=== PATIENT | male | born 1975 | race Caucasian/White ===

== ENCOUNTER 2016-11-06 17:57 | Emergency (ER) | payer SELFPAY ==
[2016-11-06 18:09] VITALS: BP 141/87
--- NOTE | 2016-11-06 19:05 | ER Document Report ---
ED Extremity Problem, Lower - General Chief Complaint: Leg Pain Stated Complaint: LEG PAIN Time Seen by Provider: 11/06/16 18:35 Mode of Arrival: Ambulatory Information source: Patient Notes: 41-year-old male presents to ED for complaint of left leg pain for the last 3-4 weeks that is gradually gotten worse. He states it lockhart all the time now. Denies any injuries. 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 He had diabetes and high blood pressure TRAVEL OUTSIDE OF THE [place] IN LAST 30 DAYS: No - HPI Patient complains to provider of: Pain Location: Thigh - Left Occurred: Other - 3-4 weeks Onset/Duration: Gradual Quality of pain: Burning Severity: Severe Pain Level: 5 Recent injury: No Associated symptoms: Painful ambulation Exacerbated by: Movement, Walking Relieved by: Nothing - Related Data Allergies/Adverse Reactions: Penicillins Allergy (Verified 11/06/16 18:06) Past Medical History - General Information source: Patient - Social History Smoking Status: Never Smoker Cigarette use (# per day): No Chew tobacco use (# tins/day): No Smoking Education Provided: No Frequency of alcohol use: None Drug Abuse: None Occupation: [employer] find[employer] Lives with: Family Family History: DM, Malignancy, Other - Gallbladder disease Patient has suicidal ideation: No Patient has homicidal ideation: No - Past Medical History Cardiac Medical History: Reports: Hx Hypertension Pulmonary Medical History: Reports: None EENT Medical History: Reports: None Neurological Medical History: Reports: None Endocrine Medical History: Reports: Hx Diabetes Mellitus Type 2 Renal/ Medical History: Reports: None Malignancy Medical History: Reports None GI Medical History: Reports: None Musculoskeltal Medical History: Reports Hx Musculoskeletal Deformity, Reports Hx Musculoskeletal Trauma Skin Medical History: Reports None Psychiatric Medical History: Reports: None Traumatic Medical History: Reports: None Infectious Medical History: Reports: None Past Surgical History: Reports: Hx Appendectomy, Hx Orthopedic Surgery - bilateral knee replacement 2012, shoulder bilaterally - Immunizations Immunizations up to date: Yes Hx Diphtheria, Pertussis, Tetanus Vaccination: Yes Review of Systems - Review of Systems Constitutional: No symptoms reported EENT: No symptoms reported Cardiovascular: No symptoms reported Respiratory: No symptoms reported Gastrointestinal: No symptoms reported Genitourinary: No symptoms reported Male Genitourinary: No symptoms reported Musculoskeletal: Muscle stiffness - left leg pain Skin: No symptoms reported Hematologic/Lymphatic: No symptoms reported Neurological/Psychological: No symptoms reported -: Yes All other systems reviewed and negative Physical Exam - Vital signs Vitals: Temp Pulse Resp BP Pulse Ox 98.2 F 99 22 H 141/87 H 95 11/06/16 18:07 11/06/16 18:07 11/06/16 18:07 11/06/16 18:07 11/06/16 18:07 Interpretation: Normal - General General appearance: Appears well, Alert - HEENT Head: Normocephalic, Atraumatic Eyes: Normal Pupils: PERRL - Respiratory Respiratory status: No respiratory distress Chest status: Nontender Breath sounds: Normal Chest palpation: Normal - Cardiovascular Rhythm: Regular Heart sounds: Normal auscultation Murmur: No - Abdominal Inspection: Normal Distension: No distension Bowel sounds: Normal Tenderness: Nontender Organomegaly: No organomegaly - Back Back: Normal, Nontender - Extremities General upper extremity: Normal inspection, Nontender, Normal color, Normal ROM , Normal temperature General lower extremity: Normal inspection, Tender, Normal color, Normal ROM, Normal temperature, Normal weight bearing. No: Jamila's sign Thigh: Tender. No: Abrasion, Deformity, Dislocation, Ecchymosis, Instability, Laceration, Unable to bear weight Knee: Normal, Nontender Calf: Normal, Nontender Ankle: Normal, Nontender - Neurological Neuro grossly intact: Yes Cognition: Normal Orientation: AAOx4 [place] Coma Scale Eye Opening: Spontaneous Nieves Coma Scale Verbal: Oriented Nieves Coma Scale Motor: Obeys Commands [place] Coma Scale Total: 15 Speech: Normal Motor strength normal: LUE, RUE, LLE, RLE Sensory: Normal - Psychological Associated symptoms: Normal affect, Normal mood - Skin Skin Temperature: Warm Skin Moisture: Dry Skin Color: Normal Course - Re-evaluation Re-evalutation: 11/06/16 19:13 Discussed assessment with patient and the fact that the patient has sciatic pain which is from his lower back nerve inflammation. Instructed patient to follow-up with her primary doctor to get further evaluated. Patient instructed to try to lose some weight and to stop eating the candy that he is eaten as he also has diabetes. Patient also instructed on back exercises and ibuprofen for his pain. - Vital Signs Vital signs: Temp Pulse Resp BP Pulse Ox 98.2 F 99 22 H 141/87 H 95 11/06/16 18:07 11/06/16 18:07 11/06/16 18:07 11/06/16 18:07 11/06/16 18:07 Discharge - Discharge Clinical Impression: Sciatic leg pain Condition: Stable Disposition: HOME, SELF-CARE Instructions: Family Physicians / Practices, Stretching Exercises for the Back (OM) Additional Instructions: Sciatica Your symptoms suggest "sciatica." The pain of sciatica typically radiates down the leg. Numbness in the foot or calf may also occur. Sciatica is caused by irritation of the sciatic nerve or its branches. The irritation can be due to a herniated disk in the spine, swelling and inflammation in the muscles surrounding the sciatic nerve, or direct injury of the nerve itself. Most cases of sciatica will resolve with medical treatment. Bed rest is usually recommended initially. Surgery is only necessary when the condition will not improve with rest and antiinflammatory medication. Muscle relaxers are often given if muscle soreness is present. A CAT scan of the back may be performed if a herniated disk is suspected. Re-examination is necessary if you develop increasing numbness, localized weakness in the foot or ankle, or if the pain does not respond to rest. Anti-Inflammatory Medication You have received a prescription for an antiinflammatory agent. This is an excellent, safe drug for pain control. In addition, it has potent antiinflammatory effects which are beneficial, especially in the treatment of injuries, arthritis, or tendonitis. It's best to take this medicine with food. Persons with ulcer disease or allergy to aspirin should notify their physician of this before taking this drug. Take the medication exactly as prescribed. Don't take additional doses unless instructed to do so by your doctor. If you develop wheezing, shortness of breath, hives, faintness, stomach pain, vomiting, or dark black stools, return for re-evaluation at once. USE OF TYLENOL (ACETAMINOPHEN): Acetaminophen may be taken for pain relief or fever control. It's much safer than aspirin, offering a wider range of "safe" dosages. It is safe during . Some brand names are Tylenol, Panadol, Datril, Anacin 3, Tempra, and Liquiprin. Acetaminophen can be repeated every four hours. The following are maximum recommended dosages: WEIGHT Dose Drops Elixir Chewable( 80mg) (LBS.) drprs=droppers tsp=teaspoon 6 40 mg 0.4 ml (1/2) 6-11 80 mg 0.8 ml (full) tsp 1 tab 12-16 120 mg 1 1/2 drprs 3/4 tsp 1 1/2 tabs 17-23 160 mg 2 drprs 1 tsp 2 tabs 24-30 240 mg 3 drprs 1 1/2 tsp 3 tabs 30-35 320 mg 2 tsp 4 tabs 36-41 360 mg 2 1/4 tsp 4 1/2 tabs 42-47 400 mg 2 1/2 tsp 5 tabs 48-53 480 mg 3 tsp 6 tabs 54-59 520 mg 3 1/4 tsp 6 1/2 tabs 60-64 560 mg 3 1/2 tsp 7 tabs 65-70 600 mg 3 3/4 tsp 7 1/2 tabs 71-76 640 mg 4 tsp 8 tabs 77-82 720 mg 4 1/2 tsp 9 tabs 83-88 800 mg 5 tsp 10 tabs >89 pounds or adults 650 mg to 900 mg Acetaminophen can be repeated every four hours. Maximum dose not to exceed 4000 mg a day. These maximum recommended dosages are slightly higher than the dosages written on the product container, but these dosages are very safe and below the toxic dosage for acetaminophen. ICE PACKS: Apply ice packs frequently against the painful area. Many different schedules are recommended, such as "20 minutes on, 20 minutes off" or "one hour ice, two hours rest." If you need to work, you may need to go longer between ice treatments. You should plan to have the area ice packed AT LEAST one fourth of the time. The ice should be applied over the wrap, tape, or splint, or over a layer of cloth -- not directly against the skin. Some ice bags have a built-in cloth and can be put directly on the skin. WARM PACKS: After approximately two days, apply gentle heat (such as a heating pad or hot water bottle) for about 20 to 30 minutes about every two hours -- at least four times daily. Warmth and elevation will help you make a more rapid recovery , and will ease the pain considerably. Do not use HOT heat, and never apply heat for longer than 30 minutes. The continuous heat can invisibly damage skin and muscles -- even when no burn is seen on the surface. Damaged muscles can make you MORE sore. FOLLOW-UP CARE: If you have been referred to a physician for follow-up care, call the physician s office for an appointment as you were instructed or within the next two days. If you experience worsening or a significant change in your symptoms, notify the physician immediately or return to the Emergency Department at any time for re-evaluation. Forms: Elevated Blood Pressure, Return to Work
== END 2016-11-06 19:05 | disposition home or self-care (01) ==
LOC: ER 17:57
DX: M54.32 Sciatica, left side (principal); M79.605 Pain in left leg; E11.9 Type 2 diabetes mellitus without complications; I10 Essential (primary) hypertension
CPT/HCPCS: 99283

== ENCOUNTER 2017-09-22 19:12 | Emergency (ER) | payer SELFPAY ==
--- NOTE | 2017-09-22 19:44 | ER Document Report ---
ED GI/ - General Chief Complaint: Flank Pain Stated Complaint: FLANK PAIN Time Seen by Provider: 09/22/17 19:32 Notes: Patient is a 42-year-old male presents emergency department the chief complaint of right lower back pain. Patient states that this been going on for the past 3 days. She also admits to intermittent right upper quadrant pain. He denies any nausea, vomiting, loss of appetite, diarrhea, constipation. He admits to polyuria and polydipsia. Patient does have known insulin-dependent diabetes but is been noncompliant with care in community follow-up and has not been taking any medications for the past 7 months. Otherwise he denies any fevers or chills recently. Admits to previous appendectomy. TRAVEL OUTSIDE OF THE [place] IN LAST 30 DAYS: No - Related Data Allergies/Adverse Reactions: Penicillins Allergy (Verified 09/22/17 19:14) Past Medical History - Social History Smoking Status: Never Smoker Chew tobacco use (# tins/day): No Frequency of alcohol use: None Drug Abuse: None Family History: DM, Malignancy, Other - Gallbladder disease Patient has suicidal ideation: No Patient has homicidal ideation: No - Past Medical History Cardiac Medical History: Reports: Hx Hypertension Endocrine Medical History: Reports: Hx Diabetes Mellitus Type 2 Renal/ Medical History: Denies: Hx Peritoneal Dialysis Musculoskeltal Medical History: Reports Hx Musculoskeletal Deformity, Reports Hx Musculoskeletal Trauma Past Surgical History: Reports: Hx Appendectomy, Hx Orthopedic Surgery - bilateral knee replacement 2012, shoulder bilaterally - Immunizations Immunizations up to date: Yes Hx Diphtheria, Pertussis, Tetanus Vaccination: Yes Review of Systems - Review of Systems Constitutional: See HPI EENT: No symptoms reported Cardiovascular: No symptoms reported Respiratory: No symptoms reported Gastrointestinal: See HPI Genitourinary: See HPI Musculoskeletal: See HPI -: Yes All other systems reviewed and negative Physical Exam - Vital signs Vitals: Temp Pulse Resp BP Pulse Ox 98.3 F 94 20 133/86 H 96 09/22/17 19:17 09/22/17 19:17 09/22/17 19:17 09/22/17 19:17 09/22/17 19:17 - Notes Notes: PHYSICAL EXAM GENERAL: Alert, interacts well. HEAD: Normocephalic, atraumatic. EYES: Pupils equal, round, and reactive to light. Extraocular movements intact. ENT: Oral mucosa moist, tongue midline. NECK: Full range of motion. Supple. Trachea midline. LUNGS: Clear to auscultation bilaterally, no wheezes, rales, or rhonchi. No respiratory distress. HEART: Regular rate and rhythm. No murmurs, gallops, or rubs. ABDOMEN: Soft, nondistended, nontender. No guarding, rebound, or rigidity.. Bowel sounds present in all 4 quadrants. EXTREMITIES: Moves all 4 extremities spontaneously. No edema, radial and dorsalis pedis pulses 2/4 bilaterally. No cyanosis. Back: Pain reproducible the right lumbar para musculature without any spinous process deformities, step-offs or tenderness. Negative for CVA tenderness bilaterally 5 out of 5 strength both distally and proximally bilateral lower extremities. 2+ patellar reflexes bilaterally. Sensation grossly intact in the bilateral lower extremities. Patient is able to ambulate without difficulty. NEUROLOGICAL: Alert and oriented x4. Normal speech. PSYCH: Normal affect, normal mood. SKIN: Warm, dry, normal turgor. No rashes or lesions noted. Course - Re-evaluation Re-evalutation: 09/22/17 21:41 Patient is a 42-year-old male who presents with complaints of polyuria, polydipsia, right upper quadrant pain and lower back pain. Patient has previously presented with polyuria, polydipsia and epigastric abdominal pain in the past which led him to be diagnosed with diabetes at that time. Presentation of asymptomatic hyperglycemia. There is no evidence of HHS or diabetic ketoacidosis on laboratories or based on clinical history. Patient's vitals are within normal limits. They deny any acute focal complaints. Treatment with IV fluids given here in the emergency department. Patient was instructed to continue taking their metformin and advised they will likely need to increase dietary modification and may also need medication changes. Indications to return to emergency department as well as the importance of close outpatient follow-up were discussed at length. Patient verbalized understanding of the need for close follow-up and indications to return to the ED. Regarding his back pain. The patient presents with low back pain without signs of spinal cord compression, cauda equina syndrome, infection, aneurysm, or other serious etiology. The patient is neurologically intact. Given the extremely low risk of these diagnoses further testing and evaluation for these possibilities does not appear to be indicated at this time. The patient has been instructed to return if the symptoms worsen or change in any way. - Vital Signs Vital signs: Temp Pulse Resp BP Pulse Ox 97.7 F 81 14 138/78 H 95 09/22/17 21:48 09/22/17 21:48 09/22/17 21:48 09/22/17 21:48 09/22/17 21:48 - Laboratory Result Diagrams: 09/22/17 19:51 09/22/17 19:51 Laboratory results interpreted by me: 09/22/17 09/22/17 09/22/17 19:33 19:51 19:51 WBC 13.1 H RBC 5.73 H MCV 79 L MCH 26.6 L Absolute Neutrophils 9.8 H Sodium 135.4 L Chloride 96 L Glucose 277 H AST 13 L Urine Protein 30 H Urine Glucose (UA) >=500 H Urine Ketones 80 H Urine Blood SMALL H Ur Leukocyte Esterase TRACE H - Diagnostic Test Radiology reviewed: Reports reviewed Discharge - Discharge Clinical Impression: Type II diabetes mellitus, Abdominal pain, Dehydration Condition: Good Disposition: HOME, SELF-CARE Instructions: Diabetes ([facility]) Prescriptions: Metformin HCl [Glucophage 500 mg Tablet] 500 mg PO BID #60 tablet Referrals: [facility] [Provider Group] - Follow up in 3-5 days
[2017-09-22 20:02] LABS: APPEARANCE,URINE CLEAR; BILIRUBIN,URINE NEGATIVE (NEGATIVE); COLOR,URINE STRAW; GLUCOSE, URINE >=500 mg/dL (NEGATIVE); KETONES,URINE 80 mg/dL (NEGATIVE); LEUKOCYTE ESTERASE,URINE TRACE (NEGATIVE); NITRITE,URINE NEGATIVE (NEGATIVE); PROTEIN,URINE 30 mg/dL (NEGATIVE); URINE SPECIFIC GRAVITY 1.029; UROBILINOGEN,URINE NEGATIVE mg/dL (<2.0)
[2017-09-22 20:05] LABS: ABSOLUTE BASOPHILS # (AUTO) 0.1 10^3/uL (0.0-0.2); ABSOLUTE EOSINOPHILS # (AUTO) 0.2 10^3/uL (0.0-0.6); ABSOLUTE LYMPHOCYTES (AUTO) 2.1 10^3/uL (0.5-4.7); ABSOLUTE NEUT (AUTO) 9.8 10^3/uL (1.7-8.2); BASOPHILS % (AUTO) 0.4 % (0-2); EOSINOPHILS % (AUTO) 1.1 % (0-6); HEMATOCRIT 45.4 % (37.9-51.0); HEMOGLOBIN 15.2 g/dL (13.5-17.0); LYMPHOCYTES % (AUTO) 15.7 % (13-45); MEAN CORPUSCULAR HEMOGLOBIN 26.6 pg (27.0-33.4); MEAN CORPUSCULAR HGB CONC 33.5 g/dL (32.0-36.0); MEAN CORPUSCULAR VOLUME 79 fl (80-97); MONOCYTES % (AUTO) 7.9 % (3-13); PLATELET COUNT 283 10^3/uL (150-450); RED BLOOD COUNT 5.73 10^6/uL (4.35-5.55); RED CELL DISTRIBUTION WIDTH 13.9 % (11.5-14.0); SEGMENTED NEUTROPHILS % (AUTO) 74.9 % (42-78); TOTAL CELLS COUNTED % (AUTO) 100 %; WHITE BLOOD COUNT 13.1 10^3/uL (4.0-10.5)
[2017-09-22] MEDS ORDERED: NORMAL SALINE 1000 ML 1,000 ML IV ONE (20:10)
[2017-09-22 20:26] LABS: ALANINE AMINOTRANSFERASE 28 U/L (21-72); ALBUMIN 4.1 g/dL (3.5-5.0); ALKALINE PHOSPHATASE 97 U/L (38-126); ANION GAP 17 (5-19); ASPARTATE AMINO TRANSFERASE 13 U/L (17-59); BILIRUBIN,DIRECT 0.4 mg/dL (0.0-0.4); BILIRUBIN,TOTAL 0.7 mg/dL (0.2-1.3); BLOOD UREA NITROGEN 13 mg/dL (7-20); CALCIUM 9.5 mg/dL (8.4-10.2); CARBON DIOXIDE 22 mmol/L (22-30); CHLORIDE 96 mmol/L (98-107); GLUCOSE 277 mg/dL (75-110); LIPASE 67.5 U/L (23-300); POTASSIUM 4.3 mmol/L (3.6-5.0); SODIUM 135.4 mmol/L (137-145); TOTAL PROTEIN 7.1 g/dL (6.3-8.2)
--- NOTE | 2017-09-22 21:17 | RADIOLOGY REPORT (SQ) ---
EXAM DESCRIPTION: U/S ABDOMEN LIMITED W/O DOP COMPLETED DATE/TIME: 09/22/2017 8:24 pm REASON FOR STUDY: pain COMPARISON: None. TECHNIQUE: Dynamic and static grayscale images acquired of the abdomen and recorded on PACS. Additio nal selected color Doppler and spectral images recorded. LIMITATIONS: None. FINDINGS: PANCREAS: No masses. Visualized pancreatic duct normal caliber. LIVER: No masses. Echotexture normal. LIVER VASCULATURE: Normal directional flow of the main portal vein and hepatic veins. GALLBLADDER: No stones. Normal wall thickness. No pericholecystic fluid. ULTRASOUND-DETECTED JIMÉNEZ'S SIGN: Negative. INTRAHEPATIC DUCTS AND COMMON DUCT: CBD and intrahepatic ducts normal caliber. No filling defects. INFERIOR VENA CAVA: Normal flow. AORTA: No aneurysm. RIGHT KIDNEY: Normal size. Normal echogenicity. No solid or suspicious masses. No hydronephrosis. No calcifications. PERITONEAL AND RIGHT PLEURAL SPACE: No ascites or effusions. OTHER: No other significant findings. IMPRESSION: NORMAL RIGHT UPPER QUADRANT ULTRASOUND. TECHNICAL DOCUMENTATION: JOB ID: [id number] [employer]- All Rights Reserved Reading location - IP/workstation name: [email or web address]
[2017-09-22 21:52] VITALS: BP 138/78
== END 2017-09-22 21:52 | disposition home or self-care (01) ==
LOC: ER 19:12
DX: E11.65 Type 2 diabetes mellitus with hyperglycemia (principal); Z91.14 Patient's other noncompliance with medication regimen; M54.5 Low back pain; R10.11 Right upper quadrant pain; E86.0 Dehydration; I10 Essential (primary) hypertension; Z88.0 Allergy status to penicillin; Z90.49 Acquired absence of other specified parts of digestive tract
CPT/HCPCS: 99284; 96360; 36415; 83690; 85025; 80053; 81001; 76705; J7030

== ENCOUNTER 2017-09-26 00:41 | Emergency (ER) | payer SELFPAY ==
[2017-09-26 01:14] LABS: APPEARANCE,URINE SLIGHTLY-CLOUDY; BILIRUBIN,URINE NEGATIVE (NEGATIVE); COLOR,URINE STRAW; GLUCOSE, URINE >=500 mg/dL (NEGATIVE); KETONES,URINE 20 mg/dL (NEGATIVE); LEUKOCYTE ESTERASE,URINE LARGE (NEGATIVE); NITRITE,URINE NEGATIVE (NEGATIVE); PROTEIN,URINE 100 mg/dL (NEGATIVE); URINE SPECIFIC GRAVITY 1.028; UROBILINOGEN,URINE NEGATIVE mg/dL (<2.0)
[2017-09-26 01:45] LABS: ABSOLUTE BASOPHILS # (AUTO) 0.1 10^3/uL (0.0-0.2); ABSOLUTE EOSINOPHILS # (AUTO) 0.2 10^3/uL (0.0-0.6); ABSOLUTE LYMPHOCYTES (AUTO) 1.9 10^3/uL (0.5-4.7); ABSOLUTE MONOCYTES (AUTO) 1.1 10^3/uL (0.1-1.4); ABSOLUTE NEUT (AUTO) 9.6 10^3/uL (1.7-8.2); BASOPHILS % (AUTO) 0.5 % (0-2); EOSINOPHILS % (AUTO) 1.5 % (0-6); HEMATOCRIT 42.6 % (37.9-51.0); HEMOGLOBIN 14.3 g/dL (13.5-17.0); LYMPHOCYTES % (AUTO) 14.5 % (13-45); MEAN CORPUSCULAR HGB CONC 33.5 g/dL (32.0-36.0); MEAN CORPUSCULAR VOLUME 81 fl (80-97); MONOCYTES % (AUTO) 8.5 % (3-13); PLATELET COUNT 317 10^3/uL (150-450); RED BLOOD COUNT 5.27 10^6/uL (4.35-5.55); RED CELL DISTRIBUTION WIDTH 13.8 % (11.5-14.0); TOTAL CELLS COUNTED % (AUTO) 100 %; WHITE BLOOD COUNT 12.8 10^3/uL (4.0-10.5)
[2017-09-26] MEDS ORDERED: CEFTRIAXONE INJ 1000 MG VIAL IV ONE (01:48)
[2017-09-26] MEDS ORDERED: KETOROLAC TROMETHAMINE INJ/PF 30 MG/1 ML SDV IV ONE (01:48)
[2017-09-26] MEDS ORDERED: OXYBUTYNIN CHLORIDE 5 MG TABLET PO ONE (01:48)
--- NOTE | 2017-09-26 01:51 | ER Document Report ---
ED General - General Chief Complaint: Abdominal Pain Stated Complaint: ABDOMINAL PAIN Time Seen by Provider: 09/26/17 00:56 Notes: Patient is a 42-year-old male with a past medical history of poorly controlled diabetes, morbid obesity, who presents with 3-4 days of progressively worsening dysuria and suprapubic abdominal pain. He describes the pain as being a severe , burning pain in his urethra worsened by urinary he feels like he still has to go. He states that his symptoms were present several days ago and has been progressively worsening since that time. Nothing seems to improve or worsen his symptoms. He has not seen his general doctor regarding today's concerns. He denies any flank pain, vomiting, fever or constitutional symptoms. He denies history of prior urinary tract infections in the past. TRAVEL OUTSIDE OF THE [place] IN LAST 30 DAYS: No - Related Data Allergies/Adverse Reactions: Penicillins Allergy (Verified 09/22/17 19:14) Past Medical History - General Information source: Patient - Social History Smoking Status: Never Smoker Frequency of alcohol use: None Drug Abuse: None Lives with: Family Family History: DM, Malignancy, Other - Gallbladder disease - Past Medical History Cardiac Medical History: Reports: Hx Hypertension Endocrine Medical History: Reports: Hx Diabetes Mellitus Type 2 Renal/ Medical History: Denies: Hx Peritoneal Dialysis Musculoskeltal Medical History: Reports Hx Musculoskeletal Deformity, Reports Hx Musculoskeletal Trauma Past Surgical History: Reports: Hx Appendectomy, Hx Orthopedic Surgery - bilateral knee replacement 2012, shoulder bilaterally - Immunizations Immunizations up to date: Yes Hx Diphtheria, Pertussis, Tetanus Vaccination: Yes Review of Systems - Review of Systems Notes: Constitutional: Negative for fever. HENT: Negative for sore throat. Eyes: Negative for visual changes. Cardiovascular: Negative for chest pain. Respiratory: Negative for shortness of breath. Gastrointestinal: Positive for suprapubic abdominal pain Genitourinary: Positive for dysuria. Musculoskeletal: Negative for back pain. Skin: Negative for rash. Neurological: Negative for headaches, weakness or numbness. 10 point ROS negative except as marked above and in HPI. Physical Exam - Vital signs Vitals: Temp Pulse Resp BP Pulse Ox 98.0 F 89 18 148/94 H 97 09/26/17 00:46 09/26/17 00:46 09/26/17 00:46 09/26/17 00:46 09/26/17 00:46 Interpretation: Normal Notes: PHYSICAL EXAMINATION: GENERAL: Morbidly obese male, holding his genital region and shuffling around the room. Appears uncomfortable HEAD: Atraumatic, normocephalic. EYES: Pupils equal round and reactive to light, extraocular movements intact, sclera anicteric, conjunctiva are normal. ENT: nares patent, oropharynx clear without exudates. Moderately dry mucous membranes. NECK: Normal range of motion, supple without lymphadenopathy LUNGS: Breath sounds clear to auscultation bilaterally and equal. No wheezes rales or rhonchi. HEART: Regular rate and rhythm without murmurs ABDOMEN: Soft, mild superpubic abdominal tenderness but no additional areas of tenderness, normoactive bowel sounds. No guarding, no rebound. No masses appreciated. EXTREMITIES: no pitting or edema. No cyanosis. NEUROLOGICAL: No focal neurological deficits. Moves all extremities spontaneously and on command. PSYCH: Normal mood, normal affect. SKIN: Warm, Dry, normal turgor, no rashes or lesions noted. Course - Re-evaluation Re-evalutation: 09/26/17 01:48 Patient presents with symptoms consistent with an acute cystitis. Patient was seen several days ago and the urinalysis at that time was consistent with a urinary tract infection but no antibiotics were started and culture was not sent. Urine does look substantially worse today and a culture has been sent. A dose of ceftriaxone has been given here in the emergency room given the degree of the patient's symptoms. Vitals wnl. No history of fever, flank pain, or constitution symptoms to suggest ascending infection at this time. The patient does have some mild therapeutic abdominal tenderness but no other localized areas of tenderness. Patient is well in appearance, tolerating oral intake without difficulty. No focal abdominal tenderness to suggest acute appendicitis, biliary pathology, acute pancreatitis, tubo-ovarian abscesses, or pelvic inflammatory disease. Patient will be started on antibiotics at this time. A culture has been sent. At this time will discharge with return precautions and follow-up recommendations. Verbal discharge instructions given a the bedside and opportunity for questions given. Medication warnings reviewed. Patient is in agreement with this plan and has verbalized understanding of return precautions and the need for primary care follow-up in the next 24-72 hours. - Vital Signs Vital signs: Temp Pulse Resp BP Pulse Ox 98.0 F 89 18 148/94 H 97 09/26/17 00:46 09/26/17 00:46 09/26/17 00:46 09/26/17 00:46 09/26/17 00:46 - Laboratory Result Diagrams: 09/26/17 01:25 09/26/17 01:25 Laboratory results interpreted by me: 09/26/17 09/26/17 09/26/17 00:46 01:25 01:25 WBC 12.8 H Absolute Neutrophils 9.6 H Sodium 133.2 L Chloride 94 L Glucose 398 H AST 12 L Urine Protein 100 H Urine Glucose (UA) >=500 H Urine Ketones 20 H Urine Blood MODERATE H Ur Leukocyte Esterase LARGE H Discharge - Discharge Clinical Impression: Cystitis, Dysuria Condition: Good Disposition: HOME, SELF-CARE Additional Instructions: Your urine shows findings consistent with a urinary tract infection. Please take all the antibiotics as directed even if your symptoms have improved. Please follow-up with your primary care physician as well as urology as given that you are a male and do not have any significant risk factors for a urinary tract infection you should have a further workup as to why this infection occurred. Return to emergency room if you develop fever >101F, persistent vomiting, become lethargic, have severe pain in your sides, or any other symptoms that are concerning to you. Prescriptions: Cephalexin Monohydrate [Keflex 500 mg Capsule] 500 mg PO Q6H 5 Days capsule Phenazopyridine HCl [Pyridium 200 mg Tablet] 200 mg PO TID #15 tablet Referrals: WALLY CASAS II, MD [[facility]] - Follow up in 3-5 days
[2017-09-26 02:02] LABS: ALANINE AMINOTRANSFERASE 31 U/L (21-72); ALBUMIN 3.9 g/dL (3.5-5.0); ALKALINE PHOSPHATASE 97 U/L (38-126); ANION GAP 12 (5-19); ASPARTATE AMINO TRANSFERASE 12 U/L (17-59); BILIRUBIN,DIRECT 0.4 mg/dL (0.0-0.4); BILIRUBIN,TOTAL 0.5 mg/dL (0.2-1.3); BLOOD UREA NITROGEN 13 mg/dL (7-20); CALCIUM 9.3 mg/dL (8.4-10.2); CARBON DIOXIDE 27 mmol/L (22-30); CHLORIDE 94 mmol/L (98-107); GLUCOSE 398 mg/dL (75-110); LIPASE 91.6 U/L (23-300); POTASSIUM 4.6 mmol/L (3.6-5.0); SODIUM 133.2 mmol/L (137-145); TOTAL PROTEIN 6.8 g/dL (6.3-8.2)
[2017-09-26 02:45] VITALS: BP 128/86
== END 2017-09-26 02:44 | disposition home or self-care (01) ==
LOC: ER 00:41
DX: N30.90 Cystitis, unspecified without hematuria (principal); E11.9 Type 2 diabetes mellitus without complications; I10 Essential (primary) hypertension; E66.01 Morbid (severe) obesity due to excess calories; Z68.34 Body mass index [BMI] 34.0-34.9, adult; Z88.0 Allergy status to penicillin
CPT/HCPCS: 99284; 96374; 96375; 36415; 87086; 83690; 85025; 87088; 80053; 81001; 87186; J1885; J0696

== ENCOUNTER → 2018-02-24 | Outpatient (CLI) | payer OTHER ==
[2018-02-24 11:16] LABS: ALANINE AMINOTRANSFERASE 22 U/L (21-72); ALBUMIN 4.3 g/dL (3.5-5.0); ALKALINE PHOSPHATASE 81 U/L (38-126); ANION GAP 14 (5-19); ASPARTATE AMINO TRANSFERASE 18 U/L (17-59); BILIRUBIN,DIRECT 0.2 mg/dL (0.0-0.4); BILIRUBIN,TOTAL 0.9 mg/dL (0.2-1.3); BLOOD UREA NITROGEN 12 mg/dL (7-20); CALCIUM 9.7 mg/dL (8.4-10.2); CARBON DIOXIDE 26 mmol/L (22-30); CHLORIDE 101 mmol/L (98-107); CHOLESTEROL 157.41 mg/dL (0-200); GLUCOSE 188 mg/dL (75-110); POTASSIUM 4.9 mmol/L (3.6-5.0); SODIUM 141.1 mmol/L (137-145); TOTAL PROTEIN 7.7 g/dL (6.3-8.2); TRIGLYCERIDES 142 mg/dL (<150)
[2018-02-24 11:17] LABS: UR PRO/CREAT RATIO RESULT 0.1 mg/mg (0.0-0.2); URINE CREATININE 102.3 mg/dL (22-328)
[2018-02-24 11:26] LABS: DIRECT LDL 102 mg/dL (<100)
== END ==
LOC: CCC 09:40
DX: E11.9 Type 2 diabetes mellitus without complications (principal)
CPT/HCPCS: 36415; 80053; 80061; 82570; 83036; 84156; 84443

== ENCOUNTER 2018-07-12 21:19 | Emergency (ER) | payer BC, OTHER ==
[2018-07-13 02:55] LABS: APPEARANCE,URINE SLIGHTLY-CLOUDY; BILIRUBIN,URINE NEGATIVE (NEGATIVE); COLOR,URINE YELLOW; GLUCOSE, URINE >=500 mg/dL (NEGATIVE); KETONES,URINE TRACE mg/dL (NEGATIVE); LEUKOCYTE ESTERASE,URINE TRACE (NEGATIVE); NITRITE,URINE NEGATIVE (NEGATIVE); PROTEIN,URINE NEGATIVE (NEGATIVE); URINE SPECIFIC GRAVITY 1.024; UROBILINOGEN,URINE NEGATIVE mg/dL (<2.0)
[2018-07-13 03:19] LABS: ABSOLUTE BASOPHILS # (AUTO) 0.1 10^3/uL (0.0-0.2); ABSOLUTE EOSINOPHILS # (AUTO) 0.2 10^3/uL (0.0-0.6); ABSOLUTE LYMPHOCYTES (AUTO) 1.3 10^3/uL (0.5-4.7); ABSOLUTE MONOCYTES (AUTO) 1.2 10^3/uL (0.1-1.4); ABSOLUTE NEUT (AUTO) 9.9 10^3/uL (1.7-8.2); BASOPHILS % (AUTO) 0.5 % (0-2); EOSINOPHILS % (AUTO) 1.4 % (0-6); HEMATOCRIT 43.4 % (37.9-51.0); HEMOGLOBIN 14.6 g/dL (13.5-17.0); LYMPHOCYTES % (AUTO) 10.6 % (13-45); MEAN CORPUSCULAR HEMOGLOBIN 26.7 pg (27.0-33.4); MEAN CORPUSCULAR HGB CONC 33.5 g/dL (32.0-36.0); MEAN CORPUSCULAR VOLUME 80 fl (80-97); MONOCYTES % (AUTO) 9.2 % (3-13); PLATELET COUNT 271 10^3/uL (150-450); RED BLOOD COUNT 5.46 10^6/uL (4.35-5.55); RED CELL DISTRIBUTION WIDTH 13.4 % (11.5-14.0); SEGMENTED NEUTROPHILS % (AUTO) 78.3 % (42-78); TOTAL CELLS COUNTED % (AUTO) 100 %; WHITE BLOOD COUNT 12.6 10^3/uL (4.0-10.5)
[2018-07-13 03:41] LABS: ALANINE AMINOTRANSFERASE 32 U/L (21-72); ALBUMIN 4.3 g/dL (3.5-5.0); ALKALINE PHOSPHATASE 81 U/L (38-126); ANION GAP 13 (5-19); ASPARTATE AMINO TRANSFERASE 14 U/L (17-59); BILIRUBIN,DIRECT 0.3 mg/dL (0.0-0.4); BILIRUBIN,TOTAL 0.7 mg/dL (0.2-1.3); BLOOD UREA NITROGEN 18 mg/dL (7-20); CALCIUM 9.3 mg/dL (8.4-10.2); CARBON DIOXIDE 24 mmol/L (22-30); CHLORIDE 97 mmol/L (98-107); GLUCOSE 205 mg/dL (75-110); POTASSIUM 3.7 mmol/L (3.6-5.0); SODIUM 133.7 mmol/L (137-145); TOTAL PROTEIN 6.9 g/dL (6.3-8.2)
[2018-07-13] MEDS ORDERED: CEPHALEXIN 500 MG CAPSULE PO ONE (03:45)
--- NOTE | 2018-07-13 03:49 | ER Document Report ---
ED General - General Chief Complaint: Flu Symptoms Stated Complaint: FEVER,DEHYDRATED,NOT FEELING WELL Time Seen by Provider: 07/13/18 02:07 Primary Care Provider: [facility] [Primary Care Provider] - Follow up as needed Notes: Patient is a 43-year old male with a past medical history of morbid obesity, diabetes, hypertension, presents complaining of diffuse body aches as well as feeling hot and cold alternating rapidly between these 2 temperature sensations. Myalgias that are described as being a diffuse, throbbing, aching musculoskeletal pain that has been constant and is moderate to severe in nature. States that his symptoms started approximately 6 hours ago, has been relatively unchanged since that time. Nothing seems to improve or worsen his symptoms. States his daughter was recently sick with a viral illness and is wondering if he is developing the same thing. He denies any abdominal pain, nausea, vomiting, cough, sore throat or shortness of breath. Denies current dysuria. Has not seen his primary care doctor regarding today's concerns. Denies a history of similar symptoms in the recent past. TRAVEL OUTSIDE OF THE [place] IN LAST 30 DAYS: No - Related Data Allergies/Adverse Reactions: Penicillins Allergy (Verified 09/22/17 19:14) Past Medical History - General Information source: Patient - Social History Smoking Status: Never Smoker Frequency of alcohol use: None Drug Abuse: None Lives with: Family Family History: DM, Malignancy, Other - Gallbladder disease - Past Medical History Cardiac Medical History: Reports: Hx Hypertension Endocrine Medical History: Reports: Hx Diabetes Mellitus Type 2 Renal/ Medical History: Denies: Hx Peritoneal Dialysis Musculoskeletal Medical History: Reports Hx Musculoskeletal Deformity, Reports Hx Musculoskeletal Trauma Past Surgical History: Reports: Hx Appendectomy, Hx Orthopedic Surgery - bilateral knee replacement 2012, shoulder bilaterally - Immunizations Immunizations up to date: Yes Hx Diphtheria, Pertussis, Tetanus Vaccination: Yes Review of Systems - Review of Systems Notes: Constitutional: Positive for hot and cold temperature fluctuations, myalgias HENT: Negative for sore throat. Eyes: Negative for visual changes. Cardiovascular: Negative for chest pain. Respiratory: Negative for shortness of breath. Gastrointestinal: Negative for abdominal pain, vomiting or diarrhea. Genitourinary: Negative for dysuria. Musculoskeletal: Negative for back pain. Skin: Negative for rash. Neurological: Negative for headaches, weakness or numbness. 10 point ROS negative except as marked above and in HPI. Physical Exam - Vital signs Vitals: Temp Pulse Resp BP Pulse Ox 98.7 F 90 16 112/73 96 07/12/18 21:39 07/12/18 21:39 07/12/18 21:39 07/12/18 21:39 07/12/18 21:39 Interpretation: Normal Notes: PHYSICAL EXAMINATION: GENERAL: Well-appearing, well-nourished and in no acute distress. HEAD: Atraumatic, normocephalic. EYES: Pupils equal round and reactive to light, extraocular movements intact, sclera anicteric, conjunctiva are normal. ENT: nares patent, oropharynx clear without exudates. Moist mucous membranes. NECK: Normal range of motion, supple without lymphadenopathy LUNGS: Breath sounds clear to auscultation bilaterally and equal. No wheezes rales or rhonchi. HEART: Regular rate and rhythm without murmurs ABDOMEN: Soft, nontender, normoactive bowel sounds. No guarding, no rebound. No masses appreciated. EXTREMITIES: Normal range of motion, no pitting or edema. No cyanosis. NEUROLOGICAL: No focal neurological deficits. Moves all extremities spontaneously and on command. PSYCH: Normal mood, normal affect. SKIN: Warm, Dry, normal turgor, no rashes or lesions noted. Course - Re-evaluation Re-evalutation: 07/13/18 03:46 Patient is a overall well-appearing male who presents with complaints of feeling hot and cold and having diffuse body aches. States that his symptoms started approximately 6 hours ago. He is overall well in appearance, no focal findings on exam. Initial vitals are completely unremarkable. Patient denies any respiratory symptoms, sore throat or congestive symptoms to suggest upper viral picture or influenza. No abdominal tenderness to suggest an acute abdominal pathology. Does have a history of recurrent urinary tract infections. Urinalysis does show findings consistent with a cystitis with 20 white blood cells in the urine. Urine culture has been sent and the patient is been started on cephalexin. Given patient's otherwise reassuring evaluation, labs otherwise unremarkable I believe he is stable for outpatient management with oral antibiotics. I have a very low clinical suspicion for alternative life- threatening pathology. At this time will discharge with return precautions and follow-up recommendations. Verbal discharge instructions given a the bedside and opportunity for questions given. Medication warnings reviewed. Patient is in agreement with this plan and has verbalized understanding of return precautions and the need for primary care follow-up in the next 24-72 hours. - Vital Signs Vital signs: Temp Pulse Resp BP Pulse Ox 98.7 F 90 16 112/73 96 07/12/18 21:39 07/12/18 21:39 07/12/18 21:39 07/12/18 21:39 07/12/18 21:39 - Laboratory Result Diagrams: 07/13/18 03:09 07/13/18 03:09 Laboratory results interpreted by me: 07/13/18 07/13/18 07/13/18 02:23 03:09 03:09 WBC 12.6 H MCH 26.7 L Seg Neutrophils % 78.3 H Lymphocytes % 10.6 L Absolute Neutrophils 9.9 H Sodium 133.7 L Chloride 97 L Glucose 205 H AST 14 L Urine Glucose (UA) >=500 H Urine Ketones TRACE H Ur Leukocyte Esterase TRACE H Discharge - Discharge Clinical Impression: Cystitis, Body aches Condition: Good Disposition: HOME, SELF-CARE Additional Instructions: Your urine shows findings consistent with a urinary tract infection. Please take all the antibiotics as directed even if your symptoms have improved. Please follow-up with your primary care physician in the next 24-48 hours. Return to emergency room if you develop fever >101F, persistent vomiting, become lethargic, have severe pain in your sides, or any other symptoms that are concerning to you. Prescriptions: Cephalexin Monohydrate [Keflex 500 mg Capsule] 500 mg PO Q6H 7 Days capsule [facility]: [facility] [Primary Care Provider] - Follow up in 3-5 days
[2018-07-13 04:23] VITALS: BP 127/81
== END 2018-07-13 04:23 | disposition home or self-care (01) ==
LOC: ER 21:19 → EDBD 21:19 → ER 07-13 04:23
DX: N30.90 Cystitis, unspecified without hematuria (principal); M79.10 Myalgia, unspecified site; R50.9 Fever, unspecified; E86.0 Dehydration; E66.01 Morbid (severe) obesity due to excess calories; I10 Essential (primary) hypertension; E11.9 Type 2 diabetes mellitus without complications; Z96.653 Presence of artificial knee joint, bilateral
CPT/HCPCS: 36415; 80053; 81001; 83605; 85025; 87086; 99283

== ENCOUNTER 2018-07-26 14:53 | Emergency (ER) | payer BC ==
--- NOTE | 2018-07-26 15:57 | ER Document Report ---
ED Medical Screen (RME) - General Chief Complaint: Nausea/Vomiting Stated Complaint: ABDOMINAL PAIN, VOMITING Time Seen by Provider: 07/26/18 15:52 Primary Care Provider: FAIZAN DOBBS [Primary Care Provider] - Follow up as needed Mode of Arrival: Ambulatory Information source: Patient Notes: Patient is a 43-year-old male who presents with 3-week history of mid abdominal pain. Patient reports associated nausea, vomiting and diarrhea. Patient states he was seen here approximately 2 weeks ago and diagnosed with a urinary tract infection and gastroenteritis. Patient reports his symptoms have persisted since then. Patient denies any fevers. Exam: Abdomen distended with generalized tenderness to palpation. I have greeted and performed a rapid initial assessment of this patient. A comprehensive ED assessment and evaluation of the patient, analysis of test results and completion of the medical decision making process will be conducted by additional ED providers. Dictation of this chart was performed using voice recognition software; therefore, there may be some unintended grammatical errors. TRAVEL OUTSIDE OF THE [place] IN LAST 30 DAYS: No - Related Data Allergies/Adverse Reactions: Penicillins Allergy (Verified 07/26/18 14:55) Past Medical History - Social History Chew tobacco use (# tins/day): No Frequency of alcohol use: None Drug Abuse: None - Past Medical History Cardiac Medical History: Reports: Hx Hypertension Endocrine Medical History: Reports: Hx Diabetes Mellitus Type 2 Renal/ Medical History: Denies: Hx Peritoneal Dialysis Musculoskeltal Medical History: Reports Hx Musculoskeletal Deformity, Reports Hx Musculoskeletal Trauma Past Surgical History: Reports: Hx Appendectomy, Hx Orthopedic Surgery - bilateral knee replacement 2012, shoulder bilaterally - Immunizations Immunizations up to date: Yes Hx Diphtheria, Pertussis, Tetanus Vaccination: Yes Physical Exam - Vital signs Vitals: Temp Pulse Resp BP Pulse Ox 97.9 F 76 16 147/88 H 95 07/26/18 15:06 07/26/18 15:06 07/26/18 15:06 07/26/18 15:06 07/26/18 15:06 Course - Vital Signs Vital signs: Temp Pulse Resp BP Pulse Ox 97.9 F 76 16 147/88 H 95 07/26/18 15:06 07/26/18 15:06 07/26/18 15:06 07/26/18 15:06 07/26/18 15:06 Doctor's Discharge - Discharge Referrals: [facility] [Primary Care Provider] - Follow up as needed
[2018-07-26 17:18] LABS: APPEARANCE,URINE CLEAR; BILIRUBIN,URINE NEGATIVE (NEGATIVE); COLOR,URINE YELLOW; GLUCOSE, URINE NEGATIVE (NEGATIVE); KETONES,URINE NEGATIVE (NEGATIVE); LEUKOCYTE ESTERASE,URINE NEGATIVE (NEGATIVE); NITRITE,URINE NEGATIVE (NEGATIVE); PROTEIN,URINE NEGATIVE (NEGATIVE); URINE SPECIFIC GRAVITY 1.019; UROBILINOGEN,URINE NEGATIVE mg/dL (<2.0)
[2018-07-26 17:20] LABS: ABSOLUTE LYMPHOCYTES (AUTO) 1.8 10^3/uL (0.5-4.7); ABSOLUTE MONOCYTES (AUTO) 0.5 10^3/uL (0.1-1.4); ABSOLUTE NEUT (AUTO) 13.4 10^3/uL (1.7-8.2); BASOPHILS % (AUTO) 0.3 % (0-2); EOSINOPHILS % (AUTO) 0.1 % (0-6); HEMATOCRIT 45.5 % (37.9-51.0); LYMPHOCYTES % (AUTO) 11.4 % (13-45); MEAN CORPUSCULAR HEMOGLOBIN 26.1 pg (27.0-33.4); MEAN CORPUSCULAR HGB CONC 32.8 g/dL (32.0-36.0); MEAN CORPUSCULAR VOLUME 80 fl (80-97); MONOCYTES % (AUTO) 3.3 % (3-13); PLATELET COUNT 354 10^3/uL (150-450); RED BLOOD COUNT 5.73 10^6/uL (4.35-5.55); RED CELL DISTRIBUTION WIDTH 13.8 % (11.5-14.0); SEGMENTED NEUTROPHILS % (AUTO) 84.9 % (42-78); TOTAL CELLS COUNTED % (AUTO) 100 %; WHITE BLOOD COUNT 15.8 10^3/uL (4.0-10.5)
[2018-07-26 18:05] LABS: ALANINE AMINOTRANSFERASE 38 U/L (21-72); ALBUMIN 4.4 g/dL (3.5-5.0); ALKALINE PHOSPHATASE 99 U/L (38-126); ANION GAP 14 (5-19); ASPARTATE AMINO TRANSFERASE 20 U/L (17-59); BILIRUBIN,DIRECT 0.3 mg/dL (0.0-0.4); BILIRUBIN,TOTAL 0.7 mg/dL (0.2-1.3); BLOOD UREA NITROGEN 11 mg/dL (7-20); CALCIUM 9.7 mg/dL (8.4-10.2); CARBON DIOXIDE 27 mmol/L (22-30); CHLORIDE 97 mmol/L (98-107); GLUCOSE 149 mg/dL (75-110); LIPASE 33.7 U/L (23-300); SODIUM 137.7 mmol/L (137-145); TOTAL PROTEIN 8.1 g/dL (6.3-8.2)
[2018-07-26] MEDS: ONDANSETRON HCL INJ/PF 4 MG/2 ML SDV IV ONE (21:51)
[2018-07-26] MEDS: FENTANYL CITRATE INJ/PF 100 MCG/2 ML AMPUL IV ONE (21:53)
--- NOTE | 2018-07-26 23:15 | RADIOLOGY REPORT (SQ) ---
EXAM DESCRIPTION: CT ABDOMEN PELVIS WITH IV CONTRAST COMPLETED DATE/TME: 07/26/2018 21:30 CLINICAL HISTORY: 43 years, Male, general pain, vomit/diarrhea COMPARISON: 03/02/2016 CT TECHNIQUE: [id number] Images stored on PACS. All CT scanners at this facility use dose modulation, iterative reconstruction, and/or weight based dosing when appropriate to reduce radiation dose to as low as reasonably achievable (ALARA). [facility]: Dose Right [facility]: CareDose [facility]: Dose Right [facility]: Teradose 4D [facility]: [employer] LIMITATIONS: None. FINDINGS: Limited evaluation of the lung bases is unremarkable. Osseous structures are grossly intact. Fatty infiltrative change to the liver. The spleen, adrenal glands, pancreas, kidneys are unremarkable. The gallbladder is present. Large amount stool in the colon. No free air or free fluid. The appendix is not well seen. No pericecal inflammation to suggest acute appendicitis. Several nondilated fluid-filled loops of small bowel with subjective wall thickening could reflect nonspecific enteritis. Gas and stool throughout colon. Several nonenlarged to mildly enlarged central mesenteric lymph nodes with minor inflammation suggesting minor mesenteritis. IMPRESSION: Findings suggestive of minor mesenteric radius with several nonenlarged to mildly enlarged central mesenteric lymph nodes and minor surrounding inflammation. Fluid-filled nondilated loops of small bowel with subjective bowel wall thickening may reflect nonspecific enteritis. Fatty infiltrative change to the liver TECHNICAL DOCUMENTATION: Quality ID # [id number]: Final reports with documentation of one or more dose reduction techniques (e.g., Automated exposure control, adjustment of the mA and/or kV according to patient size, use of iterative reconstruction technique) copyright 2011 [id number]- All Rights Reserved
--- NOTE | 2018-07-27 00:10 | ER Document Report ---
ED General - General Chief Complaint: Nausea/Vomiting Stated Complaint: ABDOMINAL PAIN, VOMITING Time Seen by Provider: 07/26/18 15:52 Primary Care Provider: [facility] [NO LOCAL MD] - Follow up as needed Mode of Arrival: Ambulatory Notes: E Provider note: Patient is a 43-year-old male who presents with 3-week history of mid abdominal pain. Patient reports associated nausea, vomiting and diarrhea. Patient states he was seen here approximately 2 weeks ago and diagnosed with a urinary tract infection and gastroenteritis. Patient reports his symptoms have persisted since then. Patient denies any fevers. My HPI: Patient continues with generalized abdominal pain more so upon palpation. States he continues with the vomiting x5 this evening with 7 episodes of diarrhea he is denying blood in either. States the urinary tract infection he was diagnosed with he took all of his antibiotics. Patient states he did start to feel better for short period of time and then sta rted again with his abdominal pain 3 days ago. Patient is denying any dysuria. Patient has a history of an appendectomy, diabetes Medications: Metformin, Lantus, glipizide Allergies: Penicillin TRAVEL OUTSIDE OF THE [place] IN LAST 30 DAYS: No - Related Data Allergies/Adverse Reactions: Penicillins Allergy (Verified 07/26/18 14:55) Past Medical History - General Information source: Patient - Social History Smoking Status: Never Smoker Chew tobacco use (# tins/day): No Frequency of alcohol use: None Drug Abuse: None Family History: DM, Malignancy, Other - Gallbladder disease Patient has suicidal ideation: No Patient has homicidal ideation: No - Past Medical History Cardiac Medical History: Reports: Hx Hypertension Endocrine Medical History: Reports: Hx Diabetes Mellitus Type 2 Renal/ Medical History: Denies: Hx Peritoneal Dialysis Musculoskeletal Medical History: Reports Hx Musculoskeletal Deformity, Reports Hx Musculoskeletal Trauma Past Surgical History: Reports: Hx Appendectomy, Hx Orthopedic Surgery - bilateral knee replacement 2012, shoulder bilaterally - Immunizations Immunizations up to date: Yes Hx Diphtheria, Pertussis, Tetanus Vaccination: Yes Review of Systems - Review of Systems Constitutional: denies: Fever EENT: No symptoms reported Cardiovascular: No symptoms reported Respiratory: No symptoms reported Gastrointestinal: See HPI Genitourinary: No symptoms reported Male Genitourinary: No symptoms reported Musculoskeletal: No symptoms reported Hematologic/Lymphatic: No symptoms reported Neurological/Psychological: No symptoms reported Physical Exam - Vital signs Vitals: Temp Pulse Resp BP Pulse Ox 97.9 F 76 16 147/88 H 95 07/26/18 15:06 07/26/18 15:06 07/26/18 15:06 07/26/18 15:06 07/26/18 15:06 - Notes Notes: GENERAL: Alert, interacts well. No acute distress. HEAD: Normocephalic, atraumatic. EYES: Pupils equal, round, and reactive to light. Extraocular movements intact. ENT: Oral mucosa moist, tongue midline. NECK: Full range of motion. Supple. Trachea midline. LUNGS: Clear to auscultation bilaterally, no wheezes, rales, or rhonchi. No respiratory distress. HEART: Regular rate and rhythm. No murmur ABDOMEN: Soft,. Non-distended. Bowel sounds present in all 4 quadrants. Generalized tenderness noted all 4 quadrants. EXTREMITIES: Moves all 4 extremities spontaneously. No edema, normal radial and dorsalis pedis pulses bilaterally. No cyanosis. BACK: no cervical, thoracic, lumbar midline tenderness. No saddle anesthesia, normal distal neurovascular exam. No CVA tenderness noted NEUROLOGICAL: Alert and oriented x3. Normal speech. cranial nerves II through XII grossly intact PSYCH: Normal affect, normal mood. SKIN: Warm, dry, normal turgor. No rashes or lesions noted. Course - Re-evaluation Re-evalutation: 07/27/18 00:17 Labs ordered by E provider. Patient is noted to have a leukocytosis, upon my examination patient has generalized abdominal pain in all 4 quadrants. Due to his leukocytosis and generalized abdominal pain, repeat visits I will move towards CT imaging. 07/27/18 00:20 CT imaging shows fatty infiltrative changes of the liver, minor mesenteric radius with several nonenlarged mildly enlarged central mesenteric lymph nodes with minor surrounding inflammation, fluid-filled nondilated loops of small bowel with subjective bowel wall thickening may reflect a nonspecific enteritis. Patient has had no episodes of vomiting in the emergency room, has been able to p.o. fluids with no difficulty. Discussed diagnosis of gastroenteritis and mesenteric adenitis. Discussed use of antinausea medications and stay well- hydrated. Discussed following up with primary care provider for close return precautions. Patient voices understanding is stable for discharge. - Vital Signs Vital signs: Temp Pulse Resp BP Pulse Ox 97.9 F 76 16 147/88 H 95 07/26/18 15:06 07/26/18 15:06 07/26/18 15:06 07/26/18 15:06 07/26/18 15:06 - Laboratory Result Diagrams: 07/26/18 16:21 07/26/18 16:21 Laboratory results interpreted by me: 07/26/18 07/26/18 16:21 16:21 WBC 15.8 H RBC 5.73 H MCH 26.1 L Seg Neutrophils % 84.9 H Lymphocytes % 11.4 L Absolute Neutrophils 13.4 H Chloride 97 L Glucose 149 H Discharge - Discharge Clinical Impression: Gastroenteritis, Mesenteric adenitis Condition: Stable Disposition: HOME, SELF-CARE Instructions: Gastroenteritis (adult) ([facility]), Antinausea Medication ([facility]), Vomiting ([facility]) Additional Instructions: As we discussed you have been seen and treated in the emergency department for gastroenteritis and mesenteric adenitis. This means the lining of your intestines is inflamed due to your continued vomiting and diarrhea. You should continue taking [id number] Tylenol or Motrin for your generalized abdominal pain and take antinausea medication as prescribed. As we discussed whatever is causing your diarrhea we like you to continue with your bowel movements. Just make sure you are staying well-hydrated. Please follow-up with your primary care provider in the next 24-48 hours. Please return to the emergency room for any other concerning symptoms. Prescriptions: Ondansetron [Zofran Odt 4 mg Tablet] 1 - 2 tab PO Q4H PRN #15 tab.rapdis PRN Reason: For Nausea/Vomiting [facility]: [facility] [NO LOCAL MD] - Follow up as needed
[2018-07-27 00:33] VITALS: BP 131/81
== END 2018-07-27 00:33 | disposition home or self-care (01) ==
LOC: ER 14:53 → EDBD 14:53 → ER 07-27 00:33
DX: I88.0 Nonspecific mesenteric lymphadenitis (principal); K52.9 Noninfective gastroenteritis and colitis, unspecified; R11.2 Nausea with vomiting, unspecified; R10.9 Unspecified abdominal pain; E11.9 Type 2 diabetes mellitus without complications; Z79.84 Long term (current) use of oral hypoglycemic drugs; Z79.4 Long term (current) use of insulin
CPT/HCPCS: 36415; 74177; 80053; 81001; 83690; 85025; 96374; 96375; 99284; J2405; J3010

== ENCOUNTER 2018-08-09 16:32 | Emergency (ER) | payer BC ==
--- NOTE | 2018-08-09 16:39 | ER Document Report ---
ED Medical Screen (RME) - General Stated Complaint: LEG PAIN Time Seen by Provider: 08/09/18 16:35 Mode of Arrival: Ambulatory Information source: Patient TRAVEL OUTSIDE OF THE [place] IN LAST 30 DAYS: No - HPI Patient complains to provider of: LEFT LEG PAIN AND NUMBNESS Notes: 08/09/18 16:37 PT HERE WITH LEFT LEG PAIN AND NUMBNESS. NO INJURY. NO INJURY. NO BLOOD THINNERS. NO IV DRUGS. NO BOWEL OR BLADDER DYSFUNCTION. NO RASH. JUST HAD AN ABDO CT THIS MONTH THAT WAS UNREMARKABLE. EXAM WALKING WITHOUT DIFFICULTY, NO DISTRESS, NON-TOXIC. PLAN PT TO BACK FOR FULL EXAM. An initial examination was made on the patient as part of the triage process, and it was determined a more comprehensive evaluation was necessary. Initial labs were ordered and patient was transferred to another provider in the ED who assumed care and finished evaluation and plan. - Related Data Allergies/Adverse Reactions: Penicillins Allergy (Verified 08/09/18 16:34) Past Medical History - Past Medical History Cardiac Medical History: Reports: Hx Hypertension Endocrine Medical History: Reports: Hx Diabetes Mellitus Type 2 Renal/ Medical History: Denies: Hx Peritoneal Dialysis Musculoskeltal Medical History: Reports Hx Musculoskeletal Deformity, Reports Hx Musculoskeletal Trauma Past Surgical History: Reports: Hx Appendectomy, Hx Orthopedic Surgery - zahra ateral knee replacement 2012, shoulder bilaterally - Immunizations Immunizations up to date: Yes Hx Diphtheria, Pertussis, Tetanus Vaccination: Yes
[2018-08-09] MEDS ORDERED: KETOROLAC TROMETHAMINE 60 MG/2 ML SDV IM ONE (18:12)
--- NOTE | 2018-08-09 18:19 | ER Document Report ---
ED Neck/Back Problem - General Chief Complaint: Leg Pain Stated Complaint: LEG PAIN Time Seen by Provider: 08/09/18 16:35 Mode of Arrival: Ambulatory Information source: Patient Notes: 43-year-old male presents to ED for complaint of burning pain down his left leg from the hip to knee to the front of the leg. Patient is diabetic injury but this is a new problem over the last 3 days. He states he does stand still all day and turned picking something off of one place and putting it on another all day. He states his PCP said it could be neuropathy but he missed his appointment today because he was unable to leave work and time. Patient is able to ambulate with no trouble. Patient is alert oriented respirations regular and unlabored speaking in full sentences walks with a even steady gait. Patient denies any loss of control of bowel bladder, loss of sensation or control of lower extremities, no saddle anesthesia. TRAVEL OUTSIDE OF THE [place] IN LAST 30 DAYS: No - HPI Patient complains to provider of: Pain - Left upper leg Onset: Other - 3 days ago Onset: Gradual Timing: Still present Quality of pain: Burning Severity: Moderate Pain Level: 4 Context: Lifting, Turning Recent injury: No Associated symptoms: Radiation to leg. denies: Constipation, Fever, Incontinence, Like prior neck/back pain, Motor loss, Numbness/tingling, Sensory loss, Sweaty, Unable to urinate, Lower back pain, Upper back pain Exacerbated by: Movement of trunk, Sitting position Relieved by: Nothing Similar symptoms previously: Yes Recently seen / treated by doctor: No - Related Data Allergies/Adverse Reactions: Penicillins Allergy (Verified 08/09/18 16:34) Past Medical History - General Information source: Patient - Social History Smoking Status: Never Smoker Frequency of alcohol use: None Drug Abuse: None Lives with: Family Family History: DM, Malignancy, Other - Gallbladder disease Patient has suicidal ideation: No Patient has homicidal ideation: No - Past Medical History Cardiac Medical History: Reports: Hx Hypertension Pulmonary Medical History: Reports: None EENT Medical History: Reports: None Neurological Medical History: Reports: None Endocrine Medical History: Reports: Hx Diabetes Mellitus Type 2 Renal/ Medical History: Reports: None Malignancy Medical History: Reports None GI Medical History: Reports: None Musculoskeletal Medical History: Reports Hx Musculoskeletal Deformity, Reports Hx Musculoskeletal Trauma Skin Medical History: Reports None Psychiatric Medical History: Reports: None Traumatic Medical History: Reports: None Infectious Medical History: Reports: None Past Surgical History: Reports: Hx Appendectomy, Hx Orthopedic Surgery - bilateral knee replacement 2012, shoulder bilaterally - Immunizations Immunizations up to date: Yes Hx Diphtheria, Pertussis, Tetanus Vaccination: Yes Review of Systems - Review of Systems Constitutional: No symptoms reported EENT: No symptoms reported Cardiovascular: No symptoms reported Respiratory: No symptoms reported Gastrointestinal: No symptoms reported Genitourinary: No symptoms reported Male Genitourinary: No symptoms reported Musculoskeletal: Muscle pain, Muscle stiffness, Other - Pain to the front of the left leg and left buttocks Skin: No symptoms reported Hematologic/Lymphatic: No symptoms reported Neurological/Psychological: No symptoms reported Physical Exam - Vital signs Vitals: Temp Pulse Resp BP Pulse Ox 97.9 F 88 17 137/76 H 97 08/09/18 16:53 08/09/18 16:53 08/09/18 16:53 08/09/18 16:53 08/09/18 16:53 Interpretation: Normal - General General appearance: Appears well, Alert - HEENT Head: Normocephalic, Atraumatic Eyes: Normal Pupils: PERRL - Respiratory Respiratory status: No respiratory distress Chest status: Nontender Breath sounds: Normal Chest palpation: Normal - Cardiovascular Rhythm: Regular Heart sounds: Normal auscultation Murmur: No - Abdominal Inspection: Normal Distension: No distension Bowel sounds: Normal Tenderness: Nontender Organomegaly: No organomegaly - Back Back: Normal, Tender - Pain to the left buttocks around the left eye. No: Vertebra tenderness - Extremities General upper extremity: Normal inspection, Nontender, Normal color, Normal ROM, Normal temperature General lower extremity: Normal inspection, Normal color, Normal ROM, Normal te mperature, Normal weight bearing. No: Jamila's sign Thigh: Tender - Neurological Neuro grossly intact: Yes Cognition: Normal Orientation: AAOx4 [place] Coma Scale Eye Opening: Spontaneous [place] Coma Scale Verbal: Oriented [place] Coma Scale Motor: Obeys Commands [place] Coma Scale Total: 15 Speech: Normal Motor strength normal: LUE, RUE, LLE, RLE Sensory: Normal - Psychological Associated symptoms: Normal affect, Normal mood - Skin Skin Temperature: Warm Skin Moisture: Dry Skin Color: Normal Course - Vital Signs Vital signs: Temp Pulse Resp BP Pulse Ox 98.1 F 88 18 124/78 96 08/09/18 19:06 08/09/18 19:06 08/09/18 19:06 08/09/18 19:06 08/09/18 19:06 - Laboratory Laboratory results interpreted by me: 08/09/18 18:21 POC Glucose 165 H - Diagnostic Test Radiology reviewed: Image reviewed, Reports reviewed Discharge - Discharge Clinical Impression: Sciatica Qualifiers: Laterality: left Qualified Code(s): M54.32 - Sciatica, left side Condition: Stable Disposition: HOME, SELF-CARE Instructions: Family Physicians / Practices Additional Instructions: LOW BACK PAIN: Three out of every four people will have an episode of disabling back pain during their lifetime. Most commonly the pain is due to straining of the muscles and ligaments in the low back. Usual treatment includes: (1) Rest on a firm surface. Avoid lying on your stomach. (2) Ice pack the painful area. After a few days, gentle heat may be used intermittently to relax the area, or ice packs can be continued. (3) Medication may be needed -- muscle relaxers and antiinflammatory medicines are commonly used. (4) As the back improves, exercises are prescribed to strengthen the back and abdominal muscles. Your doctor will advise you on the proper care for your back at each stage in your recovery. You may be better in a few days -- or healing may take several weeks. If new symptoms of a "herniated disc" (radiation of pain, numbness, or tingling down the back of the leg or weakness in the leg) occur, you should be re-examined. Further testing may be necessary. Sciatica Your symptoms suggest "sciatica." The pain of sciatica typically radiates down the leg. Numbness in the foot or calf may also occur. Sciatica is caused by irritation of the sciatic nerve or its branches. The irritation can be due to a herniated disk in the spine, swelling and inflammation in the muscles surrounding the sciatic nerve, or direct injury of the nerve itself. Most cases of sciatica will resolve with medical treatment. Bed rest is usually recommended initially. Surgery is only necessary when the condition will not improve with rest and antiinflammatory medication. Muscle relaxers are often given if muscle soreness is present. A CAT scan of the back may be performed if a herniated disk is suspected. Re-examination is necessary if you develop increasing numbness, localized weakness in the foot or ankle, or if the pain does not respond to rest. MUSCLE RELAXERS: Muscle relaxing medications are usually prescribed for acute muscle spasm or injury to the neck and back. They are often combined with antiinflammatory pain medication for increased relief. You may stop the muscle relaxer when the pain and stiffness have improved. Start the medication again if spasms recur. Muscle relaxers may cause drowsiness, especially with the first dose. Do not operate machinery or drive while under the effects of the medication. Most muscle relaxers last up to 24 hours. Do not combine the medication with alcohol . ICE PACKS: Apply ice packs frequently against the painful area. Many different schedules are recommended, such as "20 minutes on, 20 minutes off" or "one hour ice, two hours rest." If you need to work, you may need to go longer between ice treatments. You should plan to have the area ice packed AT LEAST one fourth of the time. The ice should be applied over the wrap, tape, or splint, or over a layer of cloth -- not directly against the skin. Some ice bags have a built-in cloth and can be put directly on the skin. WARM PACKS: After approximately two days, apply gentle heat (such as a heating pad or hot water bottle) for about 20 to 30 minutes about every two hours -- at least four times daily. Warmth and elevation will help you make a more rapid recovery, and will ease the pain considerably. Do not use HOT heat, and never apply heat for longer than 30 minutes. The continuous heat can invisibly damage skin and muscles -- even when no burn is seen on the surface. Damaged muscles can make you MORE sore. Toradol Injection You have been given an injection of ketorolac tromethamine (Toradol). This is an excellent, safe drug for pain control. It also has potent antiinflammatory action. You should have significant pain relief within about one hour. Toradol is not addicting and is non-sedating. It does not interfere with driving or work. Call or return if you develop itching, hives, shortness of breath, or rash. Stretching Exercises for the Back The physician has recommended that you begin stretching exercises for your back. These are often used even while the back is painful. However, you should notify the physician if the activities seem to increase your pain. PELVIC TILT: Lie flat on your back with knees bent. Tighten your stomach and buttock muscles so it flattens your lower back against the floor. Hold 10 seconds. Repeat 10 times, twice daily. KNEE RAISE: Lying on the back with knees bent, raise one knee to your chest, then the other. Hold both knees against the chest 10 seconds, then lower one knee at a time. Repeat 10 times, twice daily. PARTIAL TRUNK RAISE: Lie face down, arms at your sides. Keeping your waist on the floor, use your arms raise your chest up. Support yourself on your elbows for 30 seconds. Repeat twice daily, increasing the time to two minutes as you recover. I have placed a Lidoderm patch on you at this time. Take that off in 12 hours leave it off for 12 hours and then replace it every 12 hours as needed for pain. FOLLOW-UP CARE: If you have been referred to a physician for follow-up care, call the physicians office for an appointment as you were instructed or within the next two days. If you experience worsening or a significant change in your symptoms, notify the physician immediately or return to the Emergency Department at any time for re-evaluation. Prescriptions: Lidocaine [Lidoderm 5% (700 mg) Transdermal Patch] 1 patch TP DAILY #30 adh..patch Forms: Elevated Blood Pressure, Return to Work
--- NOTE | 2018-08-09 18:46 | RADIOLOGY REPORT (SQ) ---
EXAM DESCRIPTION: L SPINE WHOLE COMPLETED DATE/TIME: 08/09/2018 6:35 pm REASON FOR STUDY: siciatic pain left COMPARISON: None. NUMBER OF VIEWS: Five views including obliques. TECHNIQUE: AP, lateral, oblique, and sacral radiographic images acquired of the lumbar spine. LIMITATIONS: None. FINDINGS: MINERALIZATION: Normal. SEGMENTATION: Normal. No transitional anatomy. ALIGNMENT: Normal. VERTEBRAE: Maintained height. No fracture or worrisome bone lesion. DISCS: Preserved height. No significant osteophytes or end plate irregularity. POSTERIOR ELEMENTS: Pedicles and facets are intact. No pars defect or posterior arch defects. HARDWARE: None in the spine. PARASPINAL SOFT TISSUES: Normal. PELVIS: Intact as visualized. No fractures or worrisome bone lesions. SI joints intact. OTHER: No other significant finding. IMPRESSION: NORMAL 5 VIEW LUMBAR SPINE. TECHNICAL DOCUMENTATION: JOB ID: [id number] [employer]- All Rights Reserved Reading location - IP/workstation name: [email or web address]
[2018-08-09] MEDS ORDERED: LIDOCAINE 5% (700 MG) TRANSDERMAL ADH..PATCH TP ONE (18:57)
[2018-08-09 19:08] VITALS: BP 124/78
== END 2018-08-09 19:14 | disposition home or self-care (01) ==
LOC: ER 16:32
DX: M54.32 Sciatica, left side (principal); M79.605 Pain in left leg; M25.552 Pain in left hip; M25.562 Pain in left knee; E11.9 Type 2 diabetes mellitus without complications; I10 Essential (primary) hypertension
CPT/HCPCS: 99283; 96372; 82962; 72110; J1885

== ENCOUNTER 2018-11-11 15:09 | Emergency (ER) | payer BC ==
[2018-11-11] MEDS ORDERED: NORMAL SALINE 1000 ML 1,000 ML IV PRN (17:00)
--- NOTE | 2018-11-11 17:03 | ER Document Report ---
ED Medical Screen (RME) - General Chief Complaint: High Blood Sugar Stated Complaint: BACK PAIN Time Seen by Provider: 11/11/18 16:45 TRAVEL OUTSIDE OF THE [place] IN LAST 30 DAYS: No - HPI Notes: 11/11/18 17:01 Patient is a 43-year-old male with a history of type 2 diabetes and on insulin/metformin who presents complaining of feeling generally weak and fatigued over the past couple days with glucose readings of "high." Patient states that he has been urinating more as well. He has never been in the hospital for DKA or HHS. Patient states that he has been taking his medicine and using his insulin as directed. He is still able to eat and drink without difficulty. He is having normal bowel movements. Patient also reports having low back pain intermittently over the past month with occasional burning down his left leg which has been evaluated initially by his family doctor and he is on Neurontin for it. The pain otherwise does not typically radiate. Denies IV drug abuse or history of spinal abscess. Denies ROLDAN, fever, neck pain, URI, CP, SOB, Abd pain, dysuria, loss of control of bowel or bladder, numbness/tingling, cauda equina, or rash. I have treated and performed a rapid initial assessment of this patient. A comprehensive ED assessment and evaluation of the patient, analysis of test results and completion of medical decision making process will be conducted by additional ED providers. PHYSICAL EXAMINATION: GENERAL: Well-appearing, well-nourished and in no acute distress. A&Ox4. Answers questions appropriately. LUNGS: Breath sounds clear to auscultation bilaterally and equal. No wheezes rales or rhonchi. HEART: Regular rate and rhythm without murmurs, rubs, gallops. ABDOMEN: Soft, nondistended abdomen. No guarding, no rebound. Normal bowel sounds present. No CVA tenderness bilaterally. Grossly nontender (cannot elicit thorough abd exam w/o bed, however). - Related Data Allergies/Adverse Reactions: Penicillins Allergy (Verified 11/11/18 15:13) Past Medical History - Social History Chew tobacco use (# tins/day): No Frequency of alcohol use: None Drug Abuse: None - Past Medical History Cardiac Medical History: Reports: Hx Hypertension Endocrine Medical History: Reports: Hx Diabetes Mellitus Type 2 Renal/ Medical History: Denies: Hx Peritoneal Dialysis Musculoskeltal Medical History: Reports Hx Musculoskeletal Deformity, Reports Hx Musculoskeletal Trauma Past Surgical History: Reports: Hx Appendectomy, Hx Orthopedic Surgery - bilateral knee replacement 2012, shoulder bilaterally - Immunizations Immunizations up to date: Yes Hx Diphtheria, Pertussis, Tetanus Vaccination: Yes Physical Exam - Vital signs Vitals: Temp Pulse Resp BP Pulse Ox 98.3 F 80 20 138/83 H 97 11/11/18 15:36 11/11/18 15:36 11/11/18 15:36 11/11/18 15:36 11/11/18 15:36 Course - Vital Signs Vital signs: Temp Pulse Resp BP Pulse Ox 98.3 F 80 20 138/83 H 97 11/11/18 15:36 11/11/18 15:36 11/11/18 15:36 11/11/18 15:36 11/11/18 15:36
[2018-11-11 17:37] LABS: VENOUS BLOOD BASE EXCESS -0.7 mmol/L; VENOUS BLOOD HCO3 24.4 mmol/L (20-32); VENOUS BLOOD PCO2 41.8 mmHg (35-63); VENOUS BLOOD PH 7.38 (7.30-7.42)
[2018-11-11 17:39] LABS: ABSOLUTE EOSINOPHILS # (AUTO) 0.2 10^3/uL (0.0-0.6); ABSOLUTE LYMPHOCYTES (AUTO) 3.2 10^3/uL (0.5-4.7); ABSOLUTE MONOCYTES (AUTO) 0.7 10^3/uL (0.1-1.4); ABSOLUTE NEUT (AUTO) 6.8 10^3/uL (1.7-8.2); BASOPHILS % (AUTO) 0.4 % (0-2); EOSINOPHILS % (AUTO) 1.9 % (0-6); HEMATOCRIT 45.3 % (37.9-51.0); HEMOGLOBIN 15.1 g/dL (13.5-17.0); LYMPHOCYTES % (AUTO) 29.4 % (13-45); MEAN CORPUSCULAR HEMOGLOBIN 26.3 pg (27.0-33.4); MEAN CORPUSCULAR HGB CONC 33.3 g/dL (32.0-36.0); MEAN CORPUSCULAR VOLUME 79 fl (80-97); MONOCYTES % (AUTO) 6.5 % (3-13); PLATELET COUNT 324 10^3/uL (150-450); RED BLOOD COUNT 5.73 10^6/uL (4.35-5.55); RED CELL DISTRIBUTION WIDTH 14.5 % (11.5-14.0); SEGMENTED NEUTROPHILS % (AUTO) 61.8 % (42-78); TOTAL CELLS COUNTED % (AUTO) 100 %; WHITE BLOOD COUNT 10.9 10^3/uL (4.0-10.5)
[2018-11-11 17:47] LABS: APPEARANCE,URINE CLEAR; BILIRUBIN,URINE NEGATIVE (NEGATIVE); COLOR,URINE STRAW; GLUCOSE, URINE >=500 mg/dL (NEGATIVE); KETONES,URINE NEGATIVE (NEGATIVE); LEUKOCYTE ESTERASE,URINE NEGATIVE (NEGATIVE); NITRITE,URINE NEGATIVE (NEGATIVE); PROTEIN,URINE NEGATIVE (NEGATIVE); URINE SPECIFIC GRAVITY 1.023; UROBILINOGEN,URINE NEGATIVE mg/dL (<2.0)
[2018-11-11 17:58] LABS: ALANINE AMINOTRANSFERASE 37 U/L (21-72); ALBUMIN 4.3 g/dL (3.5-5.0); ALKALINE PHOSPHATASE 90 U/L (38-126); ANION GAP 8 (5-19); ASPARTATE AMINO TRANSFERASE 20 U/L (17-59); BILIRUBIN,DIRECT 0.2 mg/dL (0.0-0.4); BILIRUBIN,TOTAL 0.4 mg/dL (0.2-1.3); BLOOD UREA NITROGEN 15 mg/dL (7-20); CALCIUM 9.9 mg/dL (8.4-10.2); CARBON DIOXIDE 28 mmol/L (22-30); CHLORIDE 100 mmol/L (98-107); GLUCOSE 255 mg/dL (75-110); LIPASE 75.4 U/L (23-300); POTASSIUM 4.9 mmol/L (3.6-5.0); SODIUM 135.7 mmol/L (137-145); TOTAL PROTEIN 7.5 g/dL (6.3-8.2)
--- NOTE | 2018-11-11 20:34 | ER Document Report ---
ED General - General Chief Complaint: High Blood Sugar Stated Complaint: BACK PAIN Time Seen by Provider: 11/11/18 16:45 TRAVEL OUTSIDE OF THE [place] IN LAST 30 DAYS: No - HPI Patient complains to provider of: hyperglycemia and back pain Notes: Insulin-dependent diabetic male presents with episodes of hyperglycemia over the last week or 2. This is also accompanied with some chronic lower back pain 8/10 throbbing in nature without radiation. Has been seen in the emergency depa rtment the past had multiple imaging modalities done. Denies any new trauma to his back. Denies sciatica. Denies numbness or tingling in his groin, urinary retention or bowel or bladder incontinence. Denies fever chills. Patient takes 50 units of Lantus at night. Has no sliding scale at home. Patient does admit to drinking sweet tea daily - Related Data Allergies/Adverse Reactions: Penicillins Allergy (Verified 11/11/18 15:13) Past Medical History - Social History Smoking Status: Unknown if Ever Smoked Chew tobacco use (# tins/day): No Frequency of alcohol use: None Drug Abuse: None Family History: DM, Malignancy, Other - Gallbladder disease Patient has suicidal ideation: No Patient has homicidal ideation: No - Past Medical History Cardiac Medical History: Reports: Hx Hypertension Endocrine Medical History: Reports: Hx Diabetes Mellitus Type 2 Renal/ Medical History: Denies: Hx Peritoneal Dialysis Musculoskeletal Medical History: Reports Hx Musculoskeletal Deformity, Reports Hx Musculoskeletal Trauma Past Surgical History: Reports: Hx Appendectomy, Hx Orthopedic Surgery - bilateral knee replacement 2011, shoulder bilaterally - Immunizations Immunizations up to date: Yes Hx Diphtheria, Pertussis, Tetanus Vaccination: Yes Review of Systems - Review of Systems Notes: REVIEW OF SYSTEMS: CONSTITUTIONAL: -fevers, -chills EENT: -eye pain, -difficulty swallowing, -nasal congestion CARDIOVASCULAR: -chest pain, -syncope. RESPIRATORY: -cough, -SOB GASTROINTESTINAL: -abdominal pain, -nausea, -vomiting, -diarrhea GENITOURINARY: -dysuria, -hematuria MUSCULOSKELETAL: positive back pain, -neck pain SKIN: -rash or skin lesions. HEMATOLOGIC: -easy bruising or bleeding. LYMPHATIC: -swollen, enlarged glands. NEUROLOGICAL: -altered mental status or loss of consciousness, -headache, - neurologic symptoms PSYCHIATRIC: -anxiety, -depression. ALL OTHER SYSTEMS REVIEWED AND NEGATIVE. Physical Exam - Vital signs Vitals: Temp Pulse Resp BP Pulse Ox 98.3 F 80 20 138/83 H 97 11/11/18 15:36 11/11/18 15:36 11/11/18 15:36 11/11/18 15:36 11/11/18 15:36 - Notes Notes: PHYSICAL EXAMINATION: GENERAL: Well-appearing, well-nourished and in no acute distress. HEAD: Atraumatic, normocephalic. EYES: Pupils equal round and reactive to light, extraocular movements intact, sclera anicteric, conjunctiva are normal. ENT: nares patent, oropharynx clear without exudates. Moist mucous membranes. NECK: Normal range of motion, supple without lymphadenopathy LUNGS: Breath sounds clear to auscultation bilaterally and equal. No wheezes rales or rhonchi. HEART: Regular rate and rhythm without murmurs ABDOMEN: Soft, nontender, normoactive bowel sounds. No guarding, no rebound. No masses appreciated. EXTREMITIES: Normal range of motion, no pitting or edema. No cyanosis. NEUROLOGICAL: Cranial nerves grossly intact. Normal speech, normal gait. Normal sensory and motor exams. PSYCH: Normal mood, normal affect. SKIN: Warm, Dry, normal turgor, no rashes or lesions noted. Course - Re-evaluation Re-evalutation: 11/11/18 20:40 Well-appearing male no acute distress. Blood glucose mildly elevated in the emergency department. Patient has no signs of acidosis, non-anion gap. Remainder his labs all within normal limits. Patient eating drinking acting appropriately. Had a lengthy conversation with patient about his need to stop drinking sweet tea. Patient's back is been chronically hurting him in nature. He says his family doctor has not done much for him. Will prescribe ibuprofen and analgesia. Patient will be provided follow-up to orthopedics for more extensive work-up of his chronic back pain. I suspicions patient's glucose could be much better controlled with diet modifications. Follow-up PCP given strict return precautions anything changes. Patient denies nausea vomiting or other symptoms - Vital Signs Vital signs: Temp Pulse Resp BP Pulse Ox 98.3 F 80 20 138/83 H 97 11/11/18 15:36 11/11/18 15:36 11/11/18 15:36 11/11/18 15:36 11/11/18 15:36 - Laboratory Result Diagrams: 11/11/18 17:15 11/11/18 17:15 Laboratory results interpreted by me: 11/11/18 11/11/18 11/11/18 17:05 17:15 17:15 WBC 10.9 H RBC 5.73 H MCV 79 L MCH 26.3 L RDW 14.5 H Sodium 135.7 L Glucose 255 H Urine Glucose (UA) >=500 H Discharge - Discharge Clinical Impression: Hyperglycemia Back pain Qualifiers: Back pain location: low back pain Chronicity: chronic Back pain laterality: right Sciatica presence: without sciatica Qualified Code(s): M54.5 - Low back pain; G89.29 - Other chronic pain Condition: Stable Disposition: HOME, SELF-CARE Instructions: Hyperglycemia ([facility]) Prescriptions: Ibuprofen [Motrin 600 mg Tablet] 600 mg PO Q8HP PRN #21 tablet PRN Reason: Oxycodone HCl [Oxycontin Ir 5 Mg Tablet] 1 - 2 mg PO Q4H PRN #25 tablet PRN Reason: For Pain Referrals: ANGELINA ROACH MD [ACTIVE PROVISIONAL STAFF] - Follow up as needed
[2018-11-11 20:39] VITALS: BP 134/78
== END 2018-11-11 20:41 | disposition home or self-care (01) ==
LOC: ER 15:09
DX: E11.65 Type 2 diabetes mellitus with hyperglycemia (principal); M54.5 Low back pain; G89.29 Other chronic pain; I10 Essential (primary) hypertension
CPT/HCPCS: 36415; 80053; 81001; 82803; 82962; 83690; 85025; 99283

== ENCOUNTER 2018-12-08 20:19 | Emergency (ER) | payer BC ==
[2018-12-08] MEDS ORDERED: LIDOCAINE 5% (700 MG) TRANSDERMAL ADH..PATCH TP ONE (23:30)
[2018-12-08] MEDS ORDERED: KETOROLAC TROMETHAMINE 60 MG/2 ML SDV IM ONE (23:30)
--- NOTE | 2018-12-09 00:06 | RADIOLOGY REPORT (SQ) ---
EXAM DESCRIPTION: XR LUMBAR SPINE ANTEROPOSTERIOR, LATERAL, AND OBLIQUES COMPLETED DATE/TME: 12/08/2018 23:28 CLINICAL HISTORY: 43 years, Male, chronic back pain COMPARISON: None. NUMBER OF VIEWS: Five TECHNIQUE: AP, lateral and oblique images of the lumbar spine LIMITATIONS: None. FINDINGS: The alignment of the lumbar spine is satisfactory. There is no acute fracture or subluxation. The vertebral heights and disc spaces are maintained. No large soft tissue swelling. IMPRESSION: No acute fracture or subluxation copyright 2010 [employer]- All Rights Reserved
[2018-12-09] MEDS ORDERED: HYDROCODONE/ACETAMINOPHEN 5-325 MG TABLET PO ONE (00:37)
--- NOTE | 2018-12-09 00:42 | ER Document Report ---
ED Neck/Back Problem - General Chief Complaint: Back Pain Stated Complaint: LOWER BACK PAIN, RIGHT SIDE Time Seen by Provider: 12/08/18 22:53 Primary Care Provider: [facility] [Provider Group] - Follow up as needed Mode of Arrival: Ambulatory Information source: Patient Notes: 43-year-old male presented to ED for complaint of chronic low back pain. He states that the pain is worse today. He states nothing that he takes helps. He states she has not had any fall or injuries. He has been seen in the emergency room multiple times for this pain. He states it is just to the right and middle of his back but does not go down across his buttocks or down his legs. He denies any saddle anesthesia, loss control of bowel bladder, loss of control of lower extremities or loss of sensation to the lower extremities. He states he does have a history of diabetes and chronic low back pain. He does not smoke drink or do any drugs. He does live with his significant other. TRAVEL OUTSIDE OF THE [place] IN LAST 30 DAYS: No - HPI Patient complains to provider of: Pain, Lower back Onset: Other - Chronic worse today Onset: Chronic Timing: Still present Quality of pain: Sharp Severity: Moderate Pain Level: 3 Recent injury: No Associated symptoms: Like prior neck/back pain, Lower back pain. denies: Constipation, Incontinence, Motor loss, Radiation to leg, Sensory loss, Unable to urinate Exacerbated by: Nothing Relieved by: Nothing Similar symptoms previously: Yes Recently seen / treated by doctor: No - Related Data Allergies/Adverse Reactions: Penicillins Allergy (Verified 12/08/18 20:22) Past Medical History - General Information source: Patient - Social History Smoking Status: Never Smoker Frequency of alcohol use: None Drug Abuse: None Occupation: [employer] Lives with: Spouse/Significant other Family History: DM, Malignancy, Other - Gallbladder disease Patient has suicidal ideation: No Patient has homicidal ideation: No - Past Medical History Cardiac Medical History: Reports: Hx Hypertension Pulmonary Medical History: Reports: None EENT Medical History: Reports: None Neurological Medical History: Reports: None Endocrine Medical History: Reports: Hx Diabetes Mellitus Type 2 Renal/ Medical History: Reports: None Malignancy Medical History: Reports None GI Medical History: Reports: None Musculoskeletal Medical History: Reports Hx Musculoskeletal Deformity, Reports Hx Musculoskeletal Trauma Skin Medical History: Reports None Psychiatric Medical History: Reports: None Traumatic Medical History: Reports: None Infectious Medical History: Reports: None Past Surgical History: Reports: Hx Appendectomy, Hx Orthopedic Surgery - bilateral knee replacement 2012, shoulder bilaterally - Immunizations Immunizations up to date: Yes Hx Diphtheria, Pertussis, Tetanus Vaccination: Yes Review of Systems - Review of Systems Constitutional: No symptoms reported EENT: No symptoms reported Cardiovascular: No symptoms reported Respiratory: No symptoms reported Gastrointestinal: No symptoms reported Genitourinary: No symptoms reported Male Genitourinary: No symptoms reported Musculoskeletal: Back pain, Muscle pain, Muscle stiffness Skin: No symptoms reported Hematologic/Lymphatic: No symptoms reported Neurological/Psychological: No symptoms reported -: Yes All other systems reviewed and negative Physical Exam - Vital signs Vitals: Temp Pulse Resp BP Pulse Ox 98.1 F 76 18 126/73 H 96 12/08/18 20:28 12/08/18 20:28 12/08/18 20:28 12/08/18 20:28 12/08/18 20:28 Interpretation: Normal - General General appearance: Appears well, Alert - HEENT Head: Normocephalic, Atraumatic Eyes: Normal Pupils: PERRL - Respiratory Respiratory status: No respiratory distress Chest status: Nontender Breath sounds: Normal Chest palpation: Normal - Cardiovascular Rhythm: Regular Heart sounds: Normal auscultation Murmur: No - Abdominal Inspection: Normal Distension: No distension Bowel sounds: Normal Tenderness: Nontender Organomegaly: No organomegaly - Back Back: Normal, Tender. No: Vertebra tenderness - Paraspinous tenderness Notes: No signs or symptoms of cauda equina, no loss of control of bowel bladder, no saddle anesthesia, no loss of control of lower extremities. Patient denies any loss of sensation to the lower extremities. - Extremities General upper extremity: Normal inspection, Nontender, Normal color, Normal ROM, Normal temperature General lower extremity: Normal inspection, Nontender, Normal color, Normal ROM, Normal temperature, Normal weight bearing. No: Jamila's sign - Neurological Neuro grossly intact: Yes Cognition: Normal Orientation: AAOx4 Nieves Coma Scale Eye Opening: Spontaneous Nieves Coma Scale Verbal: Oriented Nieves Coma Scale Motor: Obeys Commands Nieves Coma Scale Total: 15 Speech: Normal Motor strength normal: LUE, RUE, LLE, RLE Sensory: Normal - Psychological Associated symptoms: Normal affect, Normal mood - Skin Skin Temperature: Warm Skin Moisture: Dry Skin Color: Normal Course - Re-evaluation Re-evalutation: 12/09/18 00:58 After performing a Medical Screening Examination, I estimate there is LOW risk for EXPANDING OR RUPTURED ABDOMINAL AORTIC ANEURYSM, CAUDA EQUINA SYNDROME, EPIDURAL MASS LESION, or HERNIATED DISK CAUSING SEVERE SPINAL STENOSIS, thus I consider the discharge disposition reasonable. I have reevaluated this patient multiple times and no significant life threatening changes are noted. The patient and I have discussed the diagnosis and risks, and we agree with discharging home and close follow-up. We also discussed returning to the Emergency Department immediately if new or worsening symptoms occur with the understanding that symptoms and presentations can change. We have discussed the symptoms which are most concerning (e.g., saddle anesthesia, urinary or bowel incontinence or retention, changing or worsening pain) that necessitate immediate return. - Vital Signs Vital signs: Temp Pulse Resp BP Pulse Ox 97.7 F 61 18 122/66 92 12/09/18 00:50 12/09/18 00:50 12/08/18 20:28 12/09/18 00:50 12/09/18 00:50 - Diagnostic Test Radiology reviewed: Image reviewed, Reports reviewed Discharge - Discharge Clinical Impression: Chronic back pain greater than 3 months duration Condition: Stable Disposition: HOME, SELF-CARE Additional Instructions: Chronic Pain Control Stress, inactivity, and depression make pain more severe regardless of the cause of the pain. Stress and poor physical condition can cause pain such as headaches and backache. Relaxation: Rest in a quiet place with your eyes closed for 20 minutes twice daily. Concentrate on a pleasant image, or simply "feel" your breathing. Clear your mind. Stress management: Deal with your "stressors." Either take action, or eliminate the stressor from your life. Don't let things hang over you. Accept those things you can't change. Nutrition: Eat small, balanced meals -- don't skip, don't overeat. Meals should be high-carbohydrate, low-sugar, low-fat. Exercise: Exercise helps painful conditions and eases stress. Get 30 minutes of moderate exercise, five days a week. Do an activity that does not flare your pain. Precautions: Pain which continues to disrupt daily activities, or which changes in nature, requires a medical evaluation. Pain Clinic referral is [facility]is [facility]. We do not manage chronic pain in the Emergency Department. 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 We do not provide repeated medication management of chronic painful conditions. If you wish, we can provide the name of local pain management physicians. Chronic Back Pain Chronic back pain (pain persisting longer than three months) is a common problem. A medical evaluation can look for herniated disc, arthritis, osteoporosis, tumors, and infections. But at least half the time, there's no obvious treatable cause. Anxiety and depression tend to worsen back pain. Ibuprofen or other anti-inflammatory medicine can help. A heating pad, used for 15-20 minutes at a time, can ease pain. For this type of back pain, narcotic medicines should be avoided. Muscle relaxers are rarely helpful unless you're having spasms. Activity is important. Find an aerobic exercise program that your back can tolerate. Too much rest makes back pain worse. Specific back exercises are usually prescribed to strengthen the back and abdominal muscles. Often, a physical therapist can help. Avoid heavy lifting, working while bent over, or standing with both knees straight. Most back pain patients do better with a firm mattress. If new symptoms of a "herniated disc" (radiation of pain, numbness, or tingling down the back of the leg or weakness in the leg) occur, you should be re-examined. ORAL NARCOTIC MEDICATION: You have been given a [place] for pain control. This medication is a narcotic. It's best taken with food, as nausea can result if taken on an empty stomach. Don't operate machinery or drive within six hours of taking this medication. Do not combine this medicine with alcohol, or with any medication which can cause sedation (such as cold tablets or sleeping pills) unless you get permission from the physician. Narcotics tend to cause constipation. If possible, drink plenty of fluids and eat a diet high in fiber and fruits. Please be aware that prescription narcotics also have the potential for abuse. People become addicted to these medications because of the general sense of wellbeing that they induce. This feeling along with a significant reduction in tension, anxiety, and aggression provides a stimulating seductive quality to these drugs. Once your pain is under control, we encourage you to discard your unused narcotics. ICE PACKS: Apply ice packs frequently against the painful area. Many different schedules are recommended, such as "20 minutes on, 20 minutes off" or "one hour ice, two hours rest." If you need to work, you may need to go longer between ice treatments. You should plan to have the area ice packed AT LEAST one fourth of the time. The ice should be applied over the wrap, tape, or splint, or over a layer of cloth -- not directly against the skin. Some ice bags have a built-in cloth and can be put directly on the skin. WARM PACKS: After approximately two days, apply gentle heat (such as a heating pad or hot water bottle) for about 20 to 30 minutes about every two hours -- at least four times daily. Warmth and elevation will help you make a more rapid recovery, and will ease the pain considerably. Do not use HOT heat, and never apply heat for longer than 30 minutes. The continuous heat can invisibly damage skin and muscles -- even when no burn is seen on the surface. Damaged muscles can make you MORE sore. Toradol Injection You have been given an injection of ketorolac tromethamine (Toradol). This is an excellent, safe drug for pain control. It also has potent antiinflammatory action. You should have significant pain relief within about one hour. Toradol is not addicting and is non-sedating. It does not interfere with driving or work. Call or return if you develop itching, hives, shortness of breath, or rash. Stretching Exercises for the Back The physician has recommended that you begin stretching exercises for your back. These are often used even while the back is painful. However, you should notify the physician if the activities seem to increase your pain. PELVIC TILT: Lie flat on your back with knees bent. Tighten your stomach and buttock muscles so it flattens your lower back against the floor. Hold 10 seconds. Repeat 10 times, twice daily. KNEE RAISE: Lying on the back with knees bent, raise one knee to your chest, then the other. Hold both knees against the chest 10 seconds, then lower one knee at a time. Repeat 10 times, twice daily. PARTIAL TRUNK RAISE: Lie face down, arms at your sides. Keeping your waist on the floor, use your arms raise your chest up. Support yourself on your elbows for 30 seconds. Repeat twice daily, increasing the time to two minutes as you recover. FOLLOW-UP CARE: If you have been referred to a physician for follow-up care, call the physicians office for an appointment as you were instructed or within the next two days. If you experience worsening or a significant change in your symptoms, notify the physician immediately or return to the Emergency Department at any time for re-evaluation. Forms: Elevated Blood Pressure, Return to Work Referrals: [facility] ([facility] [Provider Group] - Follow up as needed
[2018-12-09 00:52] VITALS: BP 122/66
== END 2018-12-09 00:52 | disposition home or self-care (01) ==
LOC: ER 20:19
DX: G89.29 Other chronic pain (principal); M54.5 Low back pain; E11.9 Type 2 diabetes mellitus without complications; I10 Essential (primary) hypertension; Z88.0 Allergy status to penicillin
CPT/HCPCS: 72110; J1885

== ENCOUNTER 2019-01-18 21:53 | Emergency (ER) | payer BC ==
--- NOTE | 2019-01-18 22:17 | ER Document Report ---
ED Medical Screen (RME) - General Chief Complaint: High Blood Sugar Stated Complaint: HIGH BLOOD SUGAR,538 AT HOME Time Seen by Provider: 01/18/19 22:13 Mode of Arrival: Ambulatory Information source: Patient Notes: Patient presents emergency department with reports that his blood sugars have been high for the past week. Reports his blood sugar was in the 500s this evening. Patient is a diabetic takes Lantus, metformin and saw his provider today and they have increased his diabetic medication. He reports he has been extremely thirsty and voiding frequently. I have greeted and performed a rapid initial assessment of this patient. A comprehensive ED assessment and evaluation of the patient, analysis of test results and completion of the medical decision making process will be conducted by additional ED providers. Dictation of this chart was performed using voice recognition software; therefore, there may be some unintended grammatical errors. TRAVEL OUTSIDE OF THE [place] IN LAST 30 DAYS: No - Related Data Allergies/Adverse Reactions: Penicillins Allergy (Verified 12/08/18 20:22) Past Medical History - Past Medical History Cardiac Medical History: Reports: Hx Hypertension Endocrine Medical History: Reports: Hx Diabetes Mellitus Type 2 Renal/ Medical History: Denies: Hx Peritoneal Dialysis Musculoskeltal Medical History: Reports Hx Musculoskeletal Deformity, Reports Hx Musculoskeletal Trauma Past Surgical History: Reports: Hx Appendectomy, Hx Orthopedic Surgery - bilateral knee replacement 2012, shoulder bilaterally - Immunizations Immunizations up to date: Yes Hx Diphtheria, Pertussis, Tetanus Vaccination: Yes Physical Exam - Vital signs Vitals: Temp Pulse Resp BP Pulse Ox 98.3 F 89 18 137/81 H 97 01/18/19 22:08 01/18/19 22:08 01/18/19 22:08 01/18/19 22:08 01/18/19 22:08 Course - Vital Signs Vital signs: Temp Pulse Resp BP Pulse Ox 98.3 F 89 18 137/81 H 97 01/18/19 22:08 01/18/19 22:08 01/18/19 22:08 01/18/19 22:08 01/18/19 22:08
[2019-01-18] MEDS ORDERED: NORMAL SALINE 1000 ML 1,000 ML IV ONE (22:21)
[2019-01-18 23:24] LABS: VENOUS BLOOD BASE EXCESS 1.5 mmol/L; VENOUS BLOOD HCO3 27.3 mmol/L (20-32); VENOUS BLOOD PCO2 46.8 mmHg (35-63); VENOUS BLOOD PH 7.38 (7.30-7.42)
[2019-01-18 23:29] LABS: ABSOLUTE BASOPHILS # (AUTO) 0.1 10^3/uL (0.0-0.2); ABSOLUTE EOSINOPHILS # (AUTO) 0.3 10^3/uL (0.0-0.6); ABSOLUTE LYMPHOCYTES (AUTO) 2.3 10^3/uL (0.5-4.7); ABSOLUTE MONOCYTES (AUTO) 0.6 10^3/uL (0.1-1.4); ABSOLUTE NEUT (AUTO) 5.2 10^3/uL (1.7-8.2); BASOPHILS % (AUTO) 0.9 % (0-2); HEMATOCRIT 46.1 % (37.9-51.0); HEMOGLOBIN 15.2 g/dL (13.5-17.0); LYMPHOCYTES % (AUTO) 27.5 % (13-45); MEAN CORPUSCULAR HGB CONC 32.9 g/dL (32.0-36.0); MEAN CORPUSCULAR VOLUME 79 fl (80-97); MONOCYTES % (AUTO) 6.7 % (3-13); PLATELET COUNT 277 10^3/uL (150-450); RED BLOOD COUNT 5.83 10^6/uL (4.35-5.55); RED CELL DISTRIBUTION WIDTH 14.1 % (11.5-14.0); SEGMENTED NEUTROPHILS % (AUTO) 61.9 % (42-78); TOTAL CELLS COUNTED % (AUTO) 100 %; WHITE BLOOD COUNT 8.5 10^3/uL (4.0-10.5)
[2019-01-18 23:38] LABS: ALBUMIN 4.1 g/dL (3.5-5.0); ALKALINE PHOSPHATASE 99 U/L (38-126); ANION GAP 13 (5-19); ASPARTATE AMINO TRANSFERASE 22 U/L (17-59); BILIRUBIN,DIRECT 0.1 mg/dL (0.0-0.4); BILIRUBIN,TOTAL 0.3 mg/dL (0.2-1.3); BLOOD UREA NITROGEN 13 mg/dL (7-20); CALCIUM 9.4 mg/dL (8.4-10.2); CARBON DIOXIDE 26 mmol/L (22-30); CHLORIDE 95 mmol/L (98-107); POTASSIUM 4.6 mmol/L (3.6-5.0); TOTAL PROTEIN 7.1 g/dL (6.3-8.2)
[2019-01-18 23:45] LABS: GLUCOSE 482 mg/dL (75-110)
[2019-01-18] MEDS ORDERED: INSULIN LISPRO 100 UNIT/ML 3 ML VIAL SUBCUT ONE (23:59)
--- NOTE | 2019-01-18 23:59 | ER Document Report ---
ED General - General Chief Complaint: High Blood Sugar Stated Complaint: HIGH BLOOD SUGAR,538 AT HOME Time Seen by Provider: 01/18/19 22:13 Mode of Arrival: Ambulatory TRAVEL OUTSIDE OF THE [place] IN LAST 30 DAYS: No - HPI Notes: 43-year-old male diabetic taking Lantus, metformin and now sliding scale insulin presents with elevated blood sugar. For approximately 7 days patient had gradual onset increased blood sugar, just not feeling well. Frequency and poly- adipsia. No chest pain. No abdominal pain. No nausea or vomiting. Saw his doctor today and had a sliding scale increase. He claims he has been compliant with his diabetic diet. Moderate intensity, gradual onset, nonradiating, worse with motion. No other modifying factors, no other associated symptoms, no other provocative or palliative factors. - Related Data Allergies/Adverse Reactions: Penicillins Allergy (Verified 12/08/18 20:22) Past Medical History - General Information source: Patient - Social History Smoking Status: Never Smoker Family History: DM, Malignancy, Other - Gallbladder disease Patient has suicidal ideation: No Patient has homicidal ideation: No - Past Medical History Cardiac Medical History: Reports: Hx Hypertension Endocrine Medical History: Reports: Hx Diabetes Mellitus Type 2 Renal/ Medical History: Denies: Hx Peritoneal Dialysis Musculoskeletal Medical History: Reports Hx Musculoskeletal Deformity, Reports Hx Musculoskeletal Trauma Past Surgical History: Reports: Hx Appendectomy, Hx Orthopedic Surgery - bilateral knee replacement 2012, shoulder bilaterally - Immunizations Immunizations up to date: Yes Hx Diphtheria, Pertussis, Tetanus Vaccination: Yes Review of Systems - Review of Systems Notes: Review of systems as in the history of present illness, otherwise negative x 10 systems. Physical Exam - Vital signs Vitals: Temp Pulse Resp BP Pulse Ox 98.3 F 89 18 137/81 H 97 01/18/19 22:08 01/18/19 22:08 01/18/19 22:08 01/18/19 22:08 01/18/19 22:08 - Notes Notes: General: Well developed . Dry mucosa HEENT: Normocephalic, atraumatic. Pupils equal round reactive to light. No JVD. Chest: No trauma. Respiratory: Good air exchange, normal excursion. Cardiac: Regular rhythm. No murmurs or gallops. Abdomen: Soft, benign. Nondistended. Nontender. Back: No asymmetry or gross abnormality. Motor: Grossly normal power and tone. Neurologic: Alert, nonfocal. Cranial nerves II-12 are intact. Sensation intact. Vascular: Well perfused. Normal peripheral pulses. Skin: No petechiae or purpura. Course - Re-evaluation Re-evalutation: 01/18/19 23:59 43-year-old male presents with global evidence of dehydration, hyperglycemia. Concern over potential DKA versus simple hypoglycemia. Will treat with IV fluids, labs, throat exams and reevaluate. 01/19/19 01:39 Labs reviewed, CBC unremarkable, chemistries unremarkable except hyperglycemia, normal bicarb. Urine shows glycosuria and trace ketones. Patient is received injection insulin, blood sugars have substantially improved. No evidence of DKA. He is admonished to be compliant with his diabetic diet, otherwise will follow up with his primary care doctor tomorrow, return if worsening. - Vital Signs Vital signs: Temp Pulse Resp BP Pulse Ox 98.3 F 89 18 137/81 H 97 01/18/19 22:08 01/18/19 22:08 01/18/19 22:08 01/18/19 22:08 01/18/19 22:08 - Laboratory Result Diagrams: 01/18/19 22:50 01/18/19 22:50 Laboratory results interpreted by me: 01/18/19 01/18/19 01/18/19 22: 22:50 22:50 RBC 5.83 H MCV 79 L MCH 26.0 L RDW 14.1 H Sodium 133.5 L Chloride 95 L Glucose 482 H* POC Glucose 466 H* Urine Glucose (UA) Urine Ketones 01/18/19 01/19/19 23:54 01:18 RBC MCV MCH RDW Sodium Chloride Glucose POC Glucose 276 H Urine Glucose (UA) >=500 H Urine Ketones TRACE H Discharge - Discharge Clinical Impression: Hyperglycemia Condition: Good Disposition: HOME, SELF-CARE Instructions: Hyperglycemia ([facility])
[2019-01-19] MEDS ORDERED: RINGERS SOLUTION,LACTATED 1,000 ML IV ONE (00:39)
[2019-01-19 01:22] LABS: APPEARANCE,URINE CLEAR; BILIRUBIN,URINE NEGATIVE (NEGATIVE); COLOR,URINE COLORLESS; GLUCOSE, URINE >=500 mg/dL (NEGATIVE); KETONES,URINE TRACE mg/dL (NEGATIVE); LEUKOCYTE ESTERASE,URINE NEGATIVE (NEGATIVE); NITRITE,URINE NEGATIVE (NEGATIVE); PROTEIN,URINE NEGATIVE (NEGATIVE); URINE SPECIFIC GRAVITY 1.023; UROBILINOGEN,URINE NEGATIVE mg/dL (<2.0)
[2019-01-19 01:56] VITALS: BP 134/68
== END 2019-01-19 01:56 | disposition home or self-care (01) ==
LOC: ER 21:53
DX: E11.65 Type 2 diabetes mellitus with hyperglycemia (principal); Z79.4 Long term (current) use of insulin; Z79.84 Long term (current) use of oral hypoglycemic drugs; E86.0 Dehydration; I10 Essential (primary) hypertension; Z88.0 Allergy status to penicillin
CPT/HCPCS: 99284; 96360; 96361; 36415; 82962; 85025; 80053; 81001; 82803; J1815; J7030; J7120

== ENCOUNTER 2019-02-22 15:09 | Emergency (ER) | payer BC ==
[2019-02-22 15:13] VITALS: BP 134/81
[2019-02-22] MEDS ORDERED: IBUPROFEN 800 MG TABLET PO ONE (15:29)
[2019-02-22] MEDS ORDERED: KETOROLAC TROMETHAMINE 60 MG/2 ML SDV IM ONE (15:30)
--- NOTE | 2019-02-22 15:32 | ER Document Report ---
HPI - HPI Patient complains to provider of: Right-sided low back pain Time Seen by Provider: 02/22/19 15:27 Onset: Other Onset/Duration: Persistent Quality of pain: Achy Severity: Severe Pain Level: 4 Context: This 43-year-old male with history of chronic back pain presents emergency department with complaints of right-sided back pain. He was evaluated and treated for the same pain approximately 1 month ago. He reports after a few weeks it seemed to get better for 1 week and then he went to work and it started hurting again. Denies fever vomiting diarrhea. Denies pain with void. Has not taken anything for pain. Associated Symptoms: None Exacerbated by: Movement Relieved by: Denies Similar symptoms previously: Yes Recently seen / treated by doctor: Yes - REPRODUCTIVE Reproductive: DENIES: : Past Medical History - General Information source: Patient - Social History Smoking Status: Never Smoker Chew tobacco use (# tins/day): No Frequency of alcohol use: None Drug Abuse: None Occupation: [employer] Lives with: Family Family History: DM, Malignancy, Other - Gallbladder disease Patient has suicidal ideation: No Patient has homicidal ideation: No - Past Medical History Cardiac Medical History: Reports: Hx Hypertension Endocrine Medical History: Reports: Hx Diabetes Mellitus Type 2 Renal/ Medical History: Denies: Hx Peritoneal Dialysis Musculoskeletal Medical History: Reports Hx Musculoskeletal Deformity, Reports Hx Musculoskeletal Trauma Past Surgical History: Reports: Hx Appendectomy, Hx Orthopedic Surgery - bilateral knee replacement 2012, shoulder bilaterally - Immunizations Immunizations up to date: Yes Hx Diphtheria, Pertussis, Tetanus Vaccination: Yes Vertical Provider Document - CONSTITUTIONAL Agree With Documented VS: Yes Exam Limitations: No Limitations General Appearance: WD/WN, No Apparent Distress - INFECTION CONTROL TRAVEL OUTSIDE OF THE [place] IN LAST 30 DAYS: No - HEENT HEENT: Atraumatic, Normocephalic - NECK Neck: Normal Inspection, Supple - RESPIRATORY Respiratory: No Respiratory Distress - CARDIOVASCULAR Cardiovascular: Regular Rate - GI/ABDOMEN Gastrointestinal: Abdomen Soft, Abdomen Non-Tender - BACK Back: Normal Inspection - Patient complains of right lower back feeder plywood layup line to palpate good distal movement sensation no erythema no swelling no warmth no radiation down his right leg. Patient ambulating without problems. negative: CVA Tenderness-Right, CVA Tenderness-Left - MUSCULOSKELETAL/EXTREMETIES Musculoskeletal/Extremeties: MAEW, FROM, Non-Tender - NEURO Level of Consciousness: Awake, Alert, Appropriate Motor/Sensory: No Motor Deficit - DERM Integumentary: Warm, Dry Course - Re-evaluation Re-evalutation: 02/22/19 15:43 43-year-old male with history of chronic back pain presents on right-sided low back pain. Denies other symptoms such as fever vomiting diarrhea. Denies pain with void. No IV drug use or steroid use. Has not taken anything for his pain. Patient was instructed on the importance of follow-up with his primary care provider. He does have a doctor for his diabetes. He verbalized understanding. He was also instructed to return for increased symptoms fever vomiting diarrhea. He verbalized understanding. Dictation of this chart was performed using voice recognition software; therefore, there may be some unintended grammatical errors. Low suspicion for any meningitis, fracture, expanding/ruptured AAA, cauda equina syndrome, epidural mass lesion/abscess, herniated disc causing severe spinal stenosis, or other systemic infection at this time. Patient is aware that this condition can change from initial presentation and that she needs monitor symptoms closely for any acute changes. - Vital Signs Vital signs: Temp Pulse Resp BP Pulse Ox 98.1 F 99 17 134/81 H 96 02/22/19 15:12 02/22/19 15:12 02/22/19 15:12 02/22/19 15:12 02/22/19 15:12 Discharge - Discharge Clinical Impression: right side low back pain Condition: Stable Disposition: HOME, SELF-CARE Instructions: Use of [id number] Ibuprofen ([facility]), Ice Packs ([facility]), Low Back Pain ([facility]), Muscle Relaxers ([facility]), Toradol Injection ([facility]) Additional Instructions: *You have been evaluated for low back pain *Take medication as prescribed, take ibuprofen as indicated for pain *Rest/Ice packs to the area *Follow up with your primary care provider within one week *Return to ED for worsening condition, changes, needs Prescriptions: Cyclobenzaprine HCl [Flexeril 5 mg Tablet] 5 mg PO TID #15 tablet Forms: Return to Work
== END 2019-02-22 15:55 | disposition home or self-care (01) ==
LOC: ER 15:09
DX: G89.29 Other chronic pain (principal); M54.5 Low back pain
CPT/HCPCS: 99283; 96372; J1885

== ENCOUNTER 2019-06-01 20:48 | Emergency (ER) | payer BC ==
[2019-06-01] MEDS ORDERED: NORMAL SALINE 1000 ML 1,000 ML IV ONE (21:26)
--- NOTE | 2019-06-01 21:29 | ER Document Report ---
ED Medical Screen (RME) - General Chief Complaint: High Blood Sugar Stated Complaint: BLOOD SUGAR Time Seen by Provider: 06/01/19 21:26 Notes: HPI: 44-year-old male who is a diabetic presenting for hyperglycemia today. Patient also has had some chest tightness over the anterior chest today. Had nausea earlier no vomiting and no nausea currently. Patient states that he is on metformin 2000 mg daily, takes regular insulin 10 units 3 times daily, Lantus insulin 50 units subcutaneous daily. Patient states they checked his blood sugar at work today and it would not read on the machine. I have greeted and performed a rapid initial assessment of this patient. A comprehensive ED assessment and evaluation of the patient, analysis of test results and completion of the medical decision making process will be conducted by additional ED providers PHYSICAL EXAMINATION: GENERAL: Well-appearing, well-nourished and in mild acute distress. HEAD: Atraumatic, normocephalic. EYES: sclera anicteric, conjunctiva are normal. ENT: Moist mucous membranes. NECK: Normal range of motion LUNGS: Normal work of breathing, clear to auscultation HEART: 2+ radial pulses bilaterally, regular rate and rhythm ABD: limited by positioning for exam in triage. Morbidly obese. EXTREMITIES: no pitting or edema. No cyanosis. NEUROLOGICAL: No focal neurological deficits. Moves all extremities spontaneously and on command. PSYCH: Normal mood, normal affect. SKIN: Warm, Dry, normal turgor, no rashes or lesions noted. TRAVEL OUTSIDE OF THE [place] IN LAST 30 DAYS: No - Related Data Allergies/Adverse Reactions: Penicillins Allergy (Verified 06/01/19 21:24) Home Medications: METFORMIN. INSULIN Past Medical History - Past Medical History Cardiac Medical History: Reports: Hx Hypertension Endocrine Medical History: Reports: Hx Diabetes Mellitus Type 2 Renal/ Medical History: Denies: Hx Peritoneal Dialysis Musculoskeltal Medical History: Reports Hx Musculoskeletal Deformity, Reports Hx Musculoskeletal Trauma Past Surgical History: Reports: Hx Appendectomy, Hx Orthopedic Surgery - bilateral knee replacement 2012, shoulder bilaterally - Immunizations Immunizations up to date: Yes Hx Diphtheria, Pertussis, Tetanus Vaccination: Yes
[2019-06-01] MEDS ORDERED: ASPIRIN 81 MG TABLET, CHEWABLE PO ONE (21:30)
[2019-06-02 00:30] LABS: ABSOLUTE EOSINOPHILS # (AUTO) 0.2 10^3/uL (0.0-0.6); ABSOLUTE LYMPHOCYTES (AUTO) 2.4 10^3/uL (0.5-4.7); ABSOLUTE MONOCYTES (AUTO) 0.6 10^3/uL (0.1-1.4); ABSOLUTE NEUT (AUTO) 4.4 10^3/uL (1.7-8.2); BASOPHILS % (AUTO) 0.5 % (0-2); EOSINOPHILS % (AUTO) 2.4 % (0-6); HEMOGLOBIN 15.7 g/dL (13.5-17.0); LYMPHOCYTES % (AUTO) 31.8 % (13-45); MEAN CORPUSCULAR HEMOGLOBIN 27.1 pg (27.0-33.4); MEAN CORPUSCULAR HGB CONC 34.1 g/dL (32.0-36.0); MEAN CORPUSCULAR VOLUME 80 fl (80-97); MONOCYTES % (AUTO) 7.6 % (3-13); PLATELET COUNT 270 10^3/uL (150-450); RED BLOOD COUNT 5.78 10^6/uL (4.35-5.55); RED CELL DISTRIBUTION WIDTH 13.6 % (11.5-14.0); SEGMENTED NEUTROPHILS % (AUTO) 57.7 % (42-78); TOTAL CELLS COUNTED % (AUTO) 100 %; WHITE BLOOD COUNT 7.7 10^3/uL (4.0-10.5)
[2019-06-02 00:32] LABS: VENOUS BLOOD BASE EXCESS 0.8 mmol/L; VENOUS BLOOD HCO3 26.7 mmol/L (20-32); VENOUS BLOOD PH 7.37 (7.30-7.42)
[2019-06-02 00:36] LABS: APPEARANCE,URINE CLEAR; BILIRUBIN,URINE NEGATIVE (NEGATIVE); COLOR,URINE STRAW; GLUCOSE, URINE >=500 mg/dL (NEGATIVE); KETONES,URINE TRACE mg/dL (NEGATIVE); LEUKOCYTE ESTERASE,URINE NEGATIVE (NEGATIVE); NITRITE,URINE NEGATIVE (NEGATIVE); PROTEIN,URINE NEGATIVE (NEGATIVE); URINE SPECIFIC GRAVITY 1.032; UROBILINOGEN,URINE NEGATIVE mg/dL (<2.0)
[2019-06-02 00:48] LABS: ALBUMIN 4.4 g/dL (3.5-5.0); ALKALINE PHOSPHATASE 86 U/L (38-126); ANION GAP 10 (5-19); ASPARTATE AMINO TRANSFERASE 17 U/L (17-59); BILIRUBIN,TOTAL 0.4 mg/dL (0.2-1.3); BLOOD UREA NITROGEN 14 mg/dL (7-20); CALCIUM 9.4 mg/dL (8.4-10.2); CARBON DIOXIDE 26 mmol/L (22-30); CHLORIDE 98 mmol/L (98-107); GLUCOSE 355 mg/dL (75-110); POTASSIUM 4.6 mmol/L (3.6-5.0); TOTAL PROTEIN 7.4 g/dL (6.3-8.2)
[2019-06-02] MEDS ORDERED: NORMAL SALINE 1000 ML 1,000 ML IV ONE (03:59)
--- NOTE | 2019-06-02 04:01 | ER Document Report ---
ED Blood Sugar Problem - General Chief Complaint: High Blood Sugar Stated Complaint: BLOOD SUGAR Time Seen by Provider: 06/01/19 21:26 Primary Care Provider: GUY CISNEROS MD [ACTIVE STAFF] - Follow up in 3-5 days Notes: Patient is a 44-year-old male that comes emergency department for chief complaint of hyperglycemia. He states that at work his blood sugar was reading high. He states he is on 1000 mg of metformin twice a day, regular insulin 10 units 3 times a day, Lantus 50 units once a day. He states earlier felt some tightness over the front of his body and he felt nauseated as well. He denies dizziness, specific chest pain, shortness of breath, fever. He also has a history of hypertension. He states his A1c is very elevated and his blood sugars are not well controlled but he is changing primary care providers. He states he already has some neuropathy. TRAVEL OUTSIDE OF THE [place] IN LAST 30 DAYS: No - Related Data Allergies/Adverse Reactions: Penicillins Allergy (Verified 06/01/19 21:24) Home Medications: METFORMIN. INSULIN Past Medical History - General Information source: Patient - Social History Smoking Status: Never Smoker Frequency of alcohol use: None Drug Abuse: None Lives with: Family Family History: DM, Malignancy, Other - Gallbladder disease Patient has suicidal ideation: No Patient has homicidal ideation: No - Past Medical History Cardiac Medical History: Reports: Hx Hypertension Endocrine Medical History: Reports: Hx Diabetes Mellitus Type 2 Renal/ Medical History: Denies: Hx Peritoneal Dialysis Musculoskeletal Medical History: Reports Hx Musculoskeletal Deformity, Reports Hx Musculoskeletal Trauma Past Surgical History: Reports: Hx Appendectomy, Hx Orthopedic Surgery - b ilateral knee replacement 2012, shoulder bilaterally - Immunizations Immunizations up to date: Yes Hx Diphtheria, Pertussis, Tetanus Vaccination: Yes Review of Systems - Review of Systems Constitutional: See HPI EENT: No symptoms reported Cardiovascular: See HPI Respiratory: No symptoms reported Gastrointestinal: See HPI Genitourinary: No symptoms reported Male Genitourinary: No symptoms reported Musculoskeletal: No symptoms reported Skin: No symptoms reported Hematologic/Lymphatic: No symptoms reported Neurological/Psychological: No symptoms reported Physical Exam - Vital signs Vitals: Temp Pulse Resp BP Pulse Ox 98.1 F 76 18 104/66 97 06/01/19 23:25 06/01/19 23:25 06/01/19 23:25 06/01/19 23:25 06/01/19 23:25 - Notes Notes: GENERAL: Alert, interacts well. No acute distress. HEAD: Normocephalic, atraumatic. EYES: Pupils equal, round, and reactive to light. Extraocular movements intact. ENT: Oral mucosa moist, tongue midline. Oropharynx unremarkable. Airway patent. LUNGS: Clear to auscultation bilaterally, no wheezes, rales, or rhonchi. No respiratory distress. HEART: Regular rate and rhythm. No murmur ABDOMEN: Soft, non-tender. Non-distended. Bowel sounds present in all 4 quadrants. GENITOURINARY: Deferred EXTREMITIES: Moves all 4 extremities spontaneously. No edema, normal radial and dorsalis pedis pulses bilaterally. No cyanosis. BACK: no cervical, thoracic, lumbar midline tenderness. No saddle anesthesia, normal distal neurovascular exam. Moves all extremities in full range of motion. NEUROLOGICAL: Alert and oriented x3. Normal speech. Cranial nerves II through XII grossly intact. PSYCH: Normal affect, normal mood. SKIN: Warm, dry, normal turgor. No rashes or lesions noted. Course - Re-evaluation Re-evalutation: Patient alert, well-appearing, has no current symptoms on my evaluation. CBC unremarkable, chemistry shows hyperglycemia without acidosis, venous blood gas unremarkable. Vital signs unremarkable. EKG and troponin from triage reviewed and negative. Urinalysis indicates dehydration. Patient was given IV fluids, insulin, and blood sugar down trended nicely. Patient is already on metformin, insulin, is changing primary care providers. He has no current symptoms. I discussed findings, recommendations, close follow-up, return precautions. Patient states appreciation and agreement. Stable at time of discharge. - Vital Signs Vital signs: Temp Pulse Resp BP Pulse Ox 98.2 F 65 17 114/70 99 06/02/19 06:33 06/02/19 06:33 06/02/19 06:33 06/02/19 06:33 06/02/19 06:33 - Laboratory Result Diagrams: 06/02/19 00:05 06/02/19 00:05 Laboratory results interpreted by me: 06/01/19 06/02/19 06/02/19 21:29 00:05 00:05 RBC 5.78 H Sodium 134.4 L Glucose 355 H POC Glucose 395 H Urine Glucose (UA) Urine Ketones 06/02/19 06/02/19 06/02/19 00:05 04:05 06:06 RBC Sodium Glucose POC Glucose 249 H 201 H Urine Glucose (UA) >=500 H Urine Ketones TRACE H - EKG Interpretation by Me Additional EKG results interpreted by me: EKG shows sinus rhythm at a rate of 64, QTC 417, normal axis, no T wave inversions or ST segment changes in consecutive leads, machine reads as normal Discharge - Discharge Clinical Impression: Hyperglycemia Type II diabetes mellitus Qualifiers: Diabetes mellitus intermediate insulin use: with terminal supervisor use Diabetes mellitus complication status: with other specified complication Qualified Code(s): E11.69 - Type 2 diabetes mellitus with other specified complication Condition: Stable Disposition: HOME, SELF-CARE Additional Instructions: You have been treated for dehydration and elevated blood sugar tonight. Continue your current medication, follow-up with the primary care you shows or with the listed referral for additional management. Do this in close follow-up. Return if you worsen including vomiting, fever, passing out, or any other concerning or worsening symptoms. Forms: Return to Work Referrals: GUY CISNEROS MD [ACTIVE STAFF] - Follow up in 3-5 days
[2019-06-02] MEDS ORDERED: INSULIN REG, HUMAN 100 UNIT/ML 3 ML VIAL (PYX) SUBCUT ONE (04:16)
[2019-06-02 06:35] VITALS: BP 114/70
--- NOTE | 2019-06-02 19:38 | EKG REPORT ---
SEVERITY:- NORMAL ECG - SINUS RHYTHM : Confirmed by: Emerald Castellon MD 02-Jun-2019 19:37:11
== END 2019-06-02 06:25 | disposition home or self-care (01) ==
LOC: ER 20:48
DX: E11.65 Type 2 diabetes mellitus with hyperglycemia (principal); E11.69 Type 2 diabetes mellitus with other specified complication; E11.40 Type 2 diabetes mellitus with diabetic neuropathy, unspecified; R11.0 Nausea; Z79.4 Long term (current) use of insulin; I10 Essential (primary) hypertension; Z88.0 Allergy status to penicillin; Z79.84 Long term (current) use of oral hypoglycemic drugs
CPT/HCPCS: 93005; 99285; 96360; 96361; 36415; 82962; 85025; 80053; 81001; 84484; 82803; 93010; J1815; J7030

== ENCOUNTER 2019-07-10 21:07 | Emergency (ER) | payer BC ==
[2019-07-10 21:12] VITALS: BP 141/80
--- NOTE | 2019-07-10 21:19 | ER Document Report ---
ED Medical Screen (RME) - General Chief Complaint: Sore Throat Stated Complaint: SORE THROAT/CHILLS Notes: Patient is a 44-year-old white male with past medical history of type 2 diabetes who presents to the emergency department the chief complaint of cough sore throat and feeling feverish for the past few days. He admits to sick contact at work you had influenza about 2 weeks ago. He denies any recent travel or known exposures to anyone under investigation or positive for coronavirus. I have treated and performed a rapid initial assessment of this patient. A comprehensive ED assessment and evaluation of the patient, analysis of test results and completion of medical decision making process will be conducted by additional ED providers. PHYSICAL EXAMINATION: GENERAL: Well-appearing, well-nourished and in no acute distress. A&Ox4. Answers questions appropriately. TRAVEL OUTSIDE OF THE [place] IN LAST 30 DAYS: No - Related Data Allergies/Adverse Reactions: Penicillins Allergy (Verified 06/01/19 21:24) Home Medications: metformin. lantus 50 units at hs. novolog 10 units ac meals Past Medical History - Past Medical History Cardiac Medical History: Reports: Hx Hypertension Endocrine Medical History: Reports: Hx Diabetes Mellitus Type 2 Renal/ Medical History: Denies: Hx Peritoneal Dialysis Musculoskeltal Medical History: Reports Hx Musculoskeletal Deformity, Reports Hx Musculoskeletal Trauma Past Surgical History: Reports: Hx Appendectomy, Hx Orthopedic Surgery - bilateral knee replacement 2012, shoulder bilaterally - Immunizations Immunizations up to date: Yes Hx Diphtheria, Pertussis, Tetanus Vaccination: Yes Physical Exam - Vital signs Vitals: Temp Pulse Resp BP Pulse Ox 97.6 F 76 16 141/80 H 97 07/10/19 21:10 07/10/19 21:10 07/10/19 21:10 07/10/19 21:10 07/10/19 21:10 Course - Vital Signs Vital signs: Temp Pulse Resp BP Pulse Ox 97.6 F 76 16 141/80 H 97 07/10/19 21:10 07/10/19 21:10 07/10/19 21:10 07/10/19 21:10 07/10/19 21:10
--- NOTE | 2019-07-10 22:01 | RADIOLOGY REPORT (SQ) ---
EXAM DESCRIPTION: XR CHEST 2 VIEWS COMPLETED DATE/TME: 07/10/2019 21:17 CLINICAL INDICATION: 44-year-old male with cough. TECHNIQUE: Two-view, PA and lateral projections of the chest were obtained. COMPARISON: 03/02/2016. FINDINGS: Unremarkable cardiac and mediastinal silhouette. Heart size is normal. Lungs are clear without focal opacity, pneumothorax or pleural effusions. The visualized bones are within normal limits. IMPRESSION: No acute cardiopulmonary abnormalities.
[2019-07-10 22:02] LABS: A TYPE INFLUENZA AG NEGATIVE (NEGATIVE); B INFLUENZA AG NEGATIVE (NEGATIVE)
--- NOTE | 2019-07-10 22:43 | ER Document Report ---
HPI - HPI Time Seen by Provider: 07/10/19 22:24 Pain Level: 4 Notes: Patient is a 44-year-old male with a history of diabetes who presents complaining of of nasal congestion/discharge, dry nonproductive cough, irritated throat, fevers, body ache 1 day. Patient states that he is still eating and drinking without difficulties, but does have a decreased p.o. intake. He is still urinating normally having normal bowel movements. Patient has been using some [id number] meds for symptoms. He denies any other significant past medical history including cardiopulmonary history and immunocompromised conditions. Denies any current headache, neck pain, chest pain, palpitations, syncope, shortness of breath, wheeze, dyspnea, abdominal pain, nausea/vomiting/diarrhea, urinary retention, dysuria, hematuria, or rash. No known contacts with COVID patients. Possible flu exposure 2 weeks ago. - ROS Systems Reviewed and Negative: Yes All other systems reviewed and negative - REPRODUCTIVE Reproductive: DENIES: : Past Medical History - Social History Smoking Status: Never Smoker Family History: DM, Malignancy, Other - Gallbladder disease Patient has suicidal ideation: No Patient has homicidal ideation: No - Past Medical History Cardiac Medical History: Reports: Hx Hypertension Endocrine Medical History: Reports: Hx Diabetes Mellitus Type 2 Renal/ Medical History: Denies: Hx Peritoneal Dialysis Musculoskeletal Medical History: Reports Hx Musculoskeletal Deformity, Reports Hx Musculoskeletal Trauma Past Surgical History: Reports: Hx Appendectomy, Hx Orthopedic Surgery - bilateral knee replacement 2012, shoulder bilaterally - Immunizations Immunizations up to date: Yes Hx Diphtheria, Pertussis, Tetanus Vaccination: Yes Vertical Provider Document - CONSTITUTIONAL Agree With Documented VS: Yes Notes: PHYSICAL EXAMINATION: GENERAL: Well-appearing, well-nourished and in no acute distress. A&Ox4. Answers questions appropriately. Moves comfortably w/o notable distress HEAD: Atraumatic, normocephalic. EYES: Pupils equal round and reactive to light, extraocular movements intact, sclera anicteric, conjunctiva are normal. ENT: Nares patent and with clear discharge. oropharynx no erythema without exudates. No tonsilar hypertrophy without erythema or exudate. No palatine shift. Uvula midline. No tongue protrusion. No drooling, hoarseness, or airway compromise. Moist mucous membranes. No sinus tenderness. NECK: Normal range of motion, supple without lymphadenopathy. No rigidity/meningismus. LUNGS: Breath sounds clear to auscultation bilaterally and equal. No wheezes rales or rhonchi. No retractions HEART: Regular rate and rhythm without murmurs, rubs, gallops. ABDOMEN: Soft, nontender, nondistended abdomen. No guarding, no rebound. Normal bowel sounds present. No CVA tenderness bilaterally. NEUROLOGICAL: Normal speech, normal gait. PSYCH: Normal mood, normal affect. SKIN: Warm, Dry, normal turgor, no rashes or lesions noted. - INFECTION CONTROL TRAVEL OUTSIDE OF THE [place] IN LAST 30 DAYS: No Course - Re-evaluation Re-evalutation: 07/10/19 22:39 Patient is an afebrile, well-hydrated, 44-year-old male who presents to the ED with acute URI, suspect viral, questionable COVID/Influenza. Vitals are acceptable. PE is otherwise unremarkable. Rapid strep, influenza, and chest XR negative. COVID testing ordered. No further labs or imaging warranted at this time based on H&P. Patient has no significant cardiopulmonary or immunocompromised medical conditions. Patient's lungs are clear to auscultation bilaterally without tachycardia, hypoxia, or tachypnea. Patient is tolerating p.o. without any difficulties. Thoroughly reviewed self-quarantine for approximately 5 days until notified about your viral testing. Stressed the importance of it and the risks/benefits. Low suspicion for any meningitis, sepsis, peritonsillar/pharyngeal abscess, respiratory compromise, severe dehydration, or other emergent systemic condition at this time. Patient is aware this condition can change from initial presentation and needs to monitor symptoms closely. Conservative measures otherwise for symptoms. Recheck with your PCM as needed otherwise. Return to the ED with any worsening/concerning symptoms otherwise as reviewed in discharge. Patient is in agreement. 07/10/19 23:25 Pt apparently told the nurse, after review or packet guidelines, and just prior to being swabbed that he had to use the bathroom. He then snuck out of the ED w/o testing. He did tell the nurse he was not missing work for a virus. The information has been passed to our maid housekeeper for further guidance. - Vital Signs Vital signs: Temp Pulse Resp BP Pulse Ox 97.6 F 76 16 141/80 H 97 07/10/19 21:10 07/10/19 21:10 07/10/19 21:10 07/10/19 21:10 07/10/19 21:10 Discharge - Discharge Clinical Impression: Acute URI Condition: Stable Disposition: HOME, SELF-CARE Instructions: Upper Respiratory Illness ([facility]) Additional Instructions: You have been tested for coronavirus and your test will take 4 to 5 days to complete. It is very important that you self-quarantine at home until notified about your lab test!! Maintain adequate fluid intake tylenol/ibuprofen as needed alternating every 3 hours for fever/body ache over the counter cold medication as needed for symptoms Humidified air may help Wash your hands regularly Wear a mask when coughing F/u: with your PCM as needed otherwise and/or when cleared Return to the ED with any fever, altered mental status/behavior, chest pain, palpitations, syncope, headache, neck pain/stiffness, shortness of breath, chest pains, wheezing, drooling, trouble swallowing/breathing, abdominal pain, n/v/d, rash, or worsening/concerning symptoms otherwise. Forms: Elevated Blood Pressure, Return to Work Referrals: [facility] [Provider Group] - Follow up as needed [facility]NO [facility]AL [facility]] - Follow up as needed
== END 2019-07-10 23:20 | disposition home or self-care (01) ==
LOC: ER 21:07
DX: J06.9 Acute upper respiratory infection, unspecified (principal); R09.81 Nasal congestion; R50.9 Fever, unspecified; M79.10 Myalgia, unspecified site; I10 Essential (primary) hypertension; E11.9 Type 2 diabetes mellitus without complications; Z96.653 Presence of artificial knee joint, bilateral
CPT/HCPCS: 71046; 87070; 87804; 87880; 99283

== ENCOUNTER 2019-07-11 12:36 | Emergency (ER) | payer BC ==
[2019-07-11 13:59] VITALS: BP 118/77
--- NOTE | 2019-07-11 14:12 | ER Document Report ---
ED Medical Screen (RME) - General Chief Complaint: Cough Stated Complaint: COLD SYMPTOMS Notes: Patient is a 44-year-old white male whose past medical history includes diabetes who was seen here yesterday in consultation for cough and flulike symptoms, had a negative flu, negative strep and normal chest x-ray. Yesterday he reports they wanted to quarantine him and testing for coronavirus but the patient declined and left without the knowledge of the provider. Patient returns today because he states the cough is ongoing. He states he went to his regular doctor who advised that he should come back up here and undergo testing. The patient is agreeable for coronavirus testing at this time. A mass was placed to be placed in a quarantine room and process for testing will be started. I have treated and performed a rapid initial assessment of this patient. A comprehensive ED assessment and evaluation of the patient, analysis of test results and completion of medical decision making process will be conducted by additional ED providers. PHYSICAL EXAMINATION: GENERAL: Well-appearing, well-nourished and in no acute distress. A&Ox4. Answers questions appropriately. Lungs: Clear to auscultation bilaterally, coarse cough TRAVEL OUTSIDE OF THE [place] IN LAST 30 DAYS: No - Related Data Allergies/Adverse Reactions: Penicillins Allergy (Verified 07/11/19 14:01) Home Medications: Lantus. Novolog. Metformin Past Medical History - Social History Chew tobacco use (# tins/day): No Frequency of alcohol use: None Drug Abuse: None - Past Medical History Cardiac Medical History: Reports: Hx Hypertension Endocrine Medical History: Reports: Hx Diabetes Mellitus Type 2 Renal/ Medical History: Denies: Hx Peritoneal Dialysis Musculoskeltal Medical History: Reports Hx Musculoskeletal Deformity, Reports Hx Musculoskeletal Trauma Past Surgical History: Reports: Hx Appendectomy, Hx Orthopedic Surgery - bilat eral knee replacement 2012, shoulder bilaterally - Immunizations Immunizations up to date: Yes Hx Diphtheria, Pertussis, Tetanus Vaccination: Yes Physical Exam - Vital signs Vitals: Temp Pulse Resp BP Pulse Ox 97.8 F 83 24 H 118/77 96 07/11/19 13:56 07/11/19 13:56 07/11/19 13:56 07/11/19 13:56 07/11/19 13:56 Course - Vital Signs Vital signs: Temp Pulse Resp BP Pulse Ox 97.8 F 83 24 H 118/77 96 07/11/19 13:56 07/11/19 13:56 07/11/19 13:56 07/11/19 13:56 07/11/19 13:56
[2019-07-11] MEDS ORDERED: ONDANSETRON ODT 4 MG TAB (6 TAB/ER DISP) PO PRN (16:24)
--- NOTE | 2019-07-11 16:24 | ER Document Report ---
HPI - HPI Time Seen by Provider: 07/11/19 15:03 Pain Level: Denies Context: Patient is a 44-year-old male who presents to the emergency department with a chief complaint of cough, some vomiting, and generally not feeling well. He was seen here in the emergency department last night and ended up leaving before he was tested for COVID 19. Patient states that he changed his mind and wanted to come back and wanted to get some medication for nausea and vomiting and his cough. - EENT EENT: DENIES: Sore Throat, Ear Pain, Eye problems - NEURO Neurology: REPORTS: Weakness. DENIES: Headache, Vision blurred, Dizzinesss / Vertigo - CARDIOVASCULAR Cardiovascular: DENIES: Chest pain - RESPIRATORY Respiratory: REPORTS: Trouble Breathing, Coughing - GASTROINTESTINAL Gastrointestinal: DENIES: Abdominal Pain, Black / Bloody Stools - URINARY Urinary: DENIES: Dysuria, Urgency, Frequency - REPRODUCTIVE Reproductive: DENIES: : - MUSCULOSKELETAL Musculoskeletal: DENIES: Extremity pain Past Medical History - Social History Smoking Status: Never Smoker Chew tobacco use (# tins/day): No Frequency of alcohol use: None Drug Abuse: None Family History: DM, Malignancy, Other - Gallbladder disease Patient has suicidal ideation: No Patient has homicidal ideation: No - Past Medical History Cardiac Medical History: Reports: Hx Hypertension Endocrine Medical History: Reports: Hx Diabetes Mellitus Type 2 Renal/ Medical History: Denies: Hx Peritoneal Dialysis Musculoskeletal Medical History: Reports Hx Musculoskeletal Deformity, Reports Hx Musculoskeletal Trauma Past Surgical History: Reports: Hx Appendectomy, Hx Orthopedic Surgery - bilateral knee replacement 2012, shoulder bilaterally - Immunizations Immunizations up to date: Yes Hx Diphtheria, Pertussis, Tetanus Vaccination: Yes Vertical Provider Document - CONSTITUTIONAL Agree With Documented VS: Yes Exam Limitations: No Limitations General Appearance: No Apparent Distress - INFECTION CONTROL TRAVEL OUTSIDE OF THE [place] IN LAST 30 DAYS: No - HEENT HEENT: Atraumatic, Normocephalic, PERRLA. negative: Pharyngeal Exudate, Pharyngeal Tenderness, Pharyngeal Erythema, Tympanic Membrane Red, Tympanic Membrane Bulging - NECK Neck: Normal Inspection. negative: Lymphadenopathy-Left, Lymphadenopathy-Right - RESPIRATORY Respiratory: Breath Sounds Normal, No Respiratory Distress, Other - cough noted - CARDIOVASCULAR Cardiovascular: Regular Rate, Regular Rhythm, No Murmur Pulses: Normal: Radial - MUSCULOSKELETAL/EXTREMETIES Musculoskeletal/Extremeties: FROM - NEURO Level of Consciousness: Awake, Alert, Appropriate Motor/Sensory: No Motor Deficit, No Sensory Deficit - DERM Integumentary: Warm, Dry Course - Re-evaluation Re-evalutation: 07/11/19 Current evaluation swab was done. Chest x-ray from last night was normal. Influenza screen from earlier was negative. Patient will self quarantine until COVID 19 test is back. He is in agreement with this plan. Instructed him on Motrin and Tylenol use. We will give him Promethazine DM to help with his cough. Follow-up precautions were given. Verbal discharge instructions were given to the patient. They verbalized understanding. They are stable for discharge. - Vital Signs Vital signs: Temp Pulse Resp BP Pulse Ox 97.8 F 83 24 H 118/77 96 07/11/19 13:56 07/11/19 13:56 07/11/19 13:56 07/11/19 13:56 07/11/19 13:56 Discharge - Discharge Clinical Impression: Cough Condition: Stable Disposition: HOME, SELF-CARE Additional Instructions: You were seen today in the emergency department for a cough. Please self quarantine for the next 14 days. You will be notified of the results of COVID 19. Please make sure you wash your hands. Please make sure you cover your cough and wear a facemask wherever you go. Prescriptions: Promethazine/Dextromethorphan [Promethazine-Dm Solution] 5 ml PO Q6HP PRN #60 ml PRN Reason:
== END 2019-07-11 16:46 | disposition home or self-care (01) ==
LOC: ER 12:36
DX: R05 Cough (principal); R11.2 Nausea with vomiting, unspecified; R53.1 Weakness; I10 Essential (primary) hypertension; E11.9 Type 2 diabetes mellitus without complications; Z20.828 Contact with and (suspected) exposure to other viral communicable diseases
CPT/HCPCS: 36415; 87635; 99283

== ENCOUNTER 2020-01-24 04:10 | Emergency (ER) | payer BC ==
[2020-01-24 04:38] VITALS: BP 112/72
--- NOTE | 2020-01-24 05:47 | RADIOLOGY REPORT (SQ) ---
Right hand radiographs: 01/24/2020 4:45 AM CDT TECHNIQUE: AP, lateral, oblique images of the right hand were obtained. HISTORY: 44-year-old patient with history of right hand pain, trauma. COMPARISON: None available FINDINGS: The carpal arcs appear to be intact. The soft tissues are grossly unremarkable. There is some irregularity of the cortex of the right fifth digit mid diaphysis. This could represent an acute fracture. There is diffuse overlying soft tissue swelling. IMPRESSION: There is cortical irregularity at the mid diaphysis of the right fifth metacarpal which may represent an acute, nondisplaced fracture.
--- NOTE | 2020-01-24 07:23 | ER Document Report ---
ED Hand/Wrist Injury - General Chief Complaint: Hand Injury Stated Complaint: HAND INJURY Time Seen by Provider: 01/24/20 07:17 Notes: CHIEF COMPLAINT: Right hand injury HPI: 44-year-old [id number] male presenting for right hand injury. Patient states that he saw he was working with was falling so he went to grab it and struck the lateral aspect of the hand on wood. Complains of pain to the fifth metacarpal region. Denies numbness or tingling in the fingertips denies other injuries or complaints ROS: See HPI - all other systems were reviewed and are otherwise negative Constitutional: no fever Integumentary: no rash Allergy: no hives Musculoskeletal: + extremity pain or swelling Neurological: no numbness/tingling, no weakness MEDICATIONS: I agree with the patient medications as charted by the RN. ALLERGIES: I agree with the allergies as charted by the RN. PAST MEDICAL HISTORY/PAST SURGICAL HISTORY: Reviewed and agree as charted by RN. SOCIAL HISTORY: Reviewed and agree as charted by RN. FAMILY HISTORY: No significant familial comorbid conditions directly related to patient complaint EXAM: Reviewed vital signs as charted by RN. CONSTITUTIONAL: Alert and oriented and responds appropriately to questions. Well-appearing; well-nourished HEAD: Normocephalic; atraumatic EYES: Conjunctivae clear, sclerae non-icteric ENT: normal nose; no rhinorrhea; moist mucous membranes NECK: Supple without meningismus CARD: symmetric distal pulses RESP: Normal chest excursion without splinting or tachypnea ABD/GI: non-distended BACK: The back appears normal EXT: Some limited flexion extension of the fourth and fifth fingers of the right hand secondary to pain. There is mild soft tissue swelling over the fifth metacarpal midshaft with tenderness on palpation of this region. No scissor deformity of flexion of the fingers. Sensation intact in the distal fingertips to touch with capillary refill less than 3 seconds. SKIN: Normal color for age and race; warm; dry; good turgor; no acute lesions noted NEURO: Moves all extremities equally; Motor and sensory function intact PSYCH: The patient's mood and manner are appropriate. Grooming and personal hygiene are appropriate. MDM: 44-year-old male with possible hairline type fracture fifth metacarpal per radiologist. Will place in an ulnar gutter splint pain management orthopedic referral TRAVEL OUTSIDE OF THE [place] IN LAST 30 DAYS: No - Related Data Allergies/Adverse Reactions: Penicillins Allergy (Verified 07/11/19 14:01) Home Medications: metformin, insulin tid Past Medical History - Social History Smoking Status: Never Smoker Family History: DM, Malignancy, Other - Gallbladder disease - Past Medical History Cardiac Medical History: Reports: Hx Hypertension Endocrine Medical History: Reports: Hx Diabetes Mellitus Type 2 Renal/ Medical History: Denies: Hx Peritoneal Dialysis Musculoskeletal Medical History: Reports Hx Musculoskeletal Deformity, Reports Hx Musculoskeletal Trauma Past Surgical History: Reports: Hx Appendectomy, Hx Orthopedic Surgery - bilateral knee replacement 2011, shoulder bilaterally - Immunizations Immunizations up to date: Yes Hx Diphtheria, Pertussis, Tetanus Vaccination: Yes Physical Exam - Vital signs Vitals: Temp Pulse Resp BP Pulse Ox 97.5 F 76 18 112/72 98 01/24/20 04:35 01/24/20 04:35 01/24/20 04:35 01/24/20 04:35 01/24/20 04:35 Course - Vital Signs Vital signs: Temp Pulse Resp BP Pulse Ox 97.5 F 76 18 112/72 98 01/24/20 04:35 01/24/20 04:35 01/24/20 04:35 01/24/20 04:35 01/24/20 04:35 Procedures - Immobilization Right Hand Time completed: 07:23 Pre-Proc Neuro Vasc Exam: Normal Immobilizer type: Ulnar Performed by: PCT Post-Proc Neuro Vasc Exam: Normal, Unchanged from pre-exam Alignment checked and good: Yes Discharge - Discharge Clinical Impression: Fracture of right hand Qualifiers: Encounter type: initial encounter Fracture type: closed Qualified Code(s): S62 .91XA - Unspecified fracture of right wrist and hand, initial encounter for closed fracture Condition: Stable Disposition: HOME, SELF-CARE Instructions: Splint Precautions ([facility]) Additional Instructions: 1. splint for comfort 2. medicines for pain as prescribed, no driving on narcotics 3. ice the hand three times daily for swelling for 10 minutes at a time, do not place ice directly on skin 4. follow up with orthopedics for further evaluation and treatment, call for appt. Prescriptions: Oxycodone HCl/Acetaminophen [Percocet 5-325 mg Tablet] 1 tab PO Q4H PRN #15 tab PRN Reason: Diclofenac Sodium [Voltaren 50 Mg Tablet.Dr] 50 mg PO BID #20 tablet. Referrals: LINDA OAKES DO [ACTIVE STAFF] - Follow up as needed
== END 2020-01-24 07:35 | disposition home or self-care (01) ==
LOC: ER 04:10
DX: S62.91XA Unspecified fracture of right hand, initial encounter for closed fracture (principal); W22.09XA Striking against other stationary object, initial encounter; E11.9 Type 2 diabetes mellitus without complications; I10 Essential (primary) hypertension; Z88.0 Allergy status to penicillin; Z79.4 Long term (current) use of insulin; Z79.84 Long term (current) use of oral hypoglycemic drugs
CPT/HCPCS: 99284